=== PATIENT | male | born 1935 | race Caucasian/White ===

== ENCOUNTER 2017-06-17 22:49 | Emergency (ER) | payer MEDICARE ==
[~2017-06-17] VITALS: Ht 185.4 cm; Wt 91.2 kg
[~2017-06-17 22:49] MED LIST: ALLP300T PO; BISO1TAB39 PO; CIPR500S2 PO; CPR500T PO; METO50TA7; METR500T PO; OXYC-12 PO; PRM25T PO; TRZS2T PO
--- OUTSIDE RECORDS SUMMARY | 2017-06-17 22:54 | XMS REPORT | Continuity of Care Document ---
Author Author [facility] Organization [facility] Address Unknown Phone Unavailable Care Team Providers Care Transit Police Officer Name Role Phone [employer] Unavailable Unavailable Problems Medications Allergies, Adverse Reactions, Alerts Immunizations Results Vital Signs Encounters Location Location Details Encounter Type Encounter Number Reason For Visit Attending Provider ADM Date DC Date Status Source OUTPATIENT [id number] JARON GARAY 12/16/2016 12/16/2016 Active [facility] O 02/26/2017 Active [facility] RAD/ONC [id number] 02/26/2017 Active [facility] Procedures Plan of Care Social History Assessment and Plan Family History Value Date Source Advance Directives Order Name Results Value Date Source
--- OUTSIDE RECORDS SUMMARY | 2017-06-17 22:54 | XMS REPORT | Encounter Summary ---
Author Author [facility] Organization [facility] Address Unknown Phone Unavailable Care Team Providers Care Outside Barrel Lathe Operator Name Role Phone PCP Unavailable Reason for Visit * Reason Comments Heme/Onc Care lupron Encounter Details Date Type Department Care Team Description 06/11/2017 Hospital [facility] Rita Gamble MD Arrived Encounter Cancer Center - [address] [facility] [place] [address] [facility] [place] [address] [facility] [address] [place], [place] [phone] Social History Tobacco Use Types Packs/Day Years Used Date Never Smoker Smokeless Tobacco: Never Used Sex Assigned at Date Recorded Not on file as of this encounter Last Filed Vital Signs Vital Sign Reading Time Taken Blood Pressure 146/90 06/11/2017 10:59 AM SHADOWGRAPH SCALE OPERATOR Pulse 59 06/11/2017 10:59 AM SHADOWGRAPH SCALE OPERATOR Temperature 36.4 C (97.5 F) 06/11/2017 10:59 AM SHADOWGRAPH SCALE OPERATOR Respiratory Rate - - Oxygen Saturation 98% 06/11/2017 10:59 AM SHADOWGRAPH SCALE OPERATOR Inhaled Oxygen - - Concentration Weight - - Height - - Body Mass Index - - in this encounter Medications at Time of Discharge Medication Sig. Disp. Refills Start Date End Date ciprofloxacin (CIPRO) 500 Take 1 Tab by mouth twice 14 Tab 0 2016 mg tablet daily. Begin taking on morning of procedure day. dicyclomine (BENTYL) 10 Take 1 capsule by mouth 360 capsule 3 2016 mg capsule four times daily. lidocaine/prilocaine Apply topically to 30 g 0 12/07/2016 (EMLA) 2.5/2.5 % topical affected area as cream directed. Apply to perineum 1 hours prior to procedure. ondansetron (ZOFRAN) 8 mg Take 0.5 Tabs by mouth 30 Tab 0 01/06/2017 tabletIndications: Nausea every 8 hours as needed for Nausea or Vomiting. oxybutynin XL (DITROPAN Take 1 Tab by mouth 90 Tab 3 01/21/2017 XL) 5 mg tablet daily. tamsulosin (FLOMAX) 0.4 Take 1 Cap by mouth 90 Cap 3 01/04/2017 mg capsuleIndications: daily. Do not crush, chew Prostate cancer (HCC) or open capsules. Take 30 minutes following the same meal each day. as of this encounter Miscellaneous Notes * Addendum Note - Madelaine Dejesus - 06/11/2017 1:33 PM SHADOWGRAPH SCALE OPERATOR Encounter addended by: Madelaine Dejesus on: 06/17/2017 9:08 AM
Actions taken : Charge Capture section accepted in this encounter Plan of Treatment Not on fileas of this encounter Visit Diagnoses Diagnosis Prostate cancer (HCC) Malignant neoplasm of prostate in this encounter Administered Medications Medication Order MAR Action Action Date Dose Rate Site leuprolide(+) 3 month (LUPRON DEPOT) Given 06/11/2017 22.5 mg Gluteal , injection 22.5 mg 10:56 SHADOWGRAPH SCALE OPERATOR Left 22.5 mg, Intramuscular, ONCE, 1 dose, Wed06/11/17 at 1100, NURSING: For IM administration only. NOTE: This is a HIGH ALERT Medication. in this encounter
--- OUTSIDE RECORDS SUMMARY | 2017-06-17 22:54 | XMS REPORT | Encounter Summary ---
Author Author [facility] Organization [facility] Address Unknown Phone Unavailable Care Team Providers Care Coil Winder Strap Name Role Phone PCP Unavailable Reason for Referral * Consult, Test & Treat Status Reason Specialty Diagnoses / Referred By Referred To Procedures Contact Contact Med Assist Specialty Radiation Therapy Diagnoses Rita Gamble Cc Radiation Review Services Prostate cancer MD Therapy Required (HCC) [address] [place], [place] rocedures [place] [address] [id number] - [place], [place] Phone: [place] [address] [place] Phone: [place] [phone] Encounter Details Date Type Department Care Team Description 06/10/2017 Orders Only Cancer Center - Radiation Pro, SPENCER Roldan Prostate cancer (HCC) Therapy (Primary Dx) [address] [place] [address] Social History Tobacco Use Types Packs/Day Years Used Date Never Smoker Smokeless Tobacco: Never Used Sex Assigned at Date Recorded Not on file as of this encounter Plan of Treatment Name Priority Associated Diagnoses Order Schedule AMB REFERRAL FOR RADIATION ONCOLOGY Routine Prostate cancer (HCC) Ordered: 06/10/2017 MEDICATIONS as of this encounter Visit Diagnoses Diagnosis Prostate cancer (HCC) - Primary Malignant neoplasm of prostate in this encounter
--- OUTSIDE RECORDS SUMMARY | 2017-06-17 22:54 | XMS REPORT | Encounter Summary ---
Author Author [facility] Organization [facility] Address Unknown Phone Unavailable Care Team Providers Care Offset Machine Operator Name Role Phone PCP Unavailable Reason for Referral * Consult, Test & Treat Status Reason Specialty Diagnoses / Referred By Referred To Procedures Contact Contact Med Assist Specialty Oncology / Diagnoses Rita Gamble Shen, Xinglei, MD Review Services Radiation Therapy Prostate cancer MD [address] Required (HCC) [address] [place] [address] [place], [place] [address] [id number] [address] [place], [place] Phone: [phone] Phone: Reason for Visit * Reason Comments Rad Therapy Follow-up Encounter Details Date Type Department Care Team Description 06/11/2017 Office Visit Cancer Center - Radiation Rita Gamble MD Prostate cancer (HCC) Therapy [address] [place] [address] [place] [address] [place], [place] [id number] Social History Tobacco Use Types Packs/Day Years Used Date Never Smoker Smokeless Tobacco: Never Used Sex Assigned at Date Recorded Not on file as of this encounter Last Filed Vital Signs Vital Sign Reading Time Taken Blood Pressure 141/73 06/11/2017 1:25 PM CERTIFIED PEDORTHOTIST Pulse 60 06/11/2017 1:25 PM CERTIFIED PEDORTHOTIST Temperature 36.8 C (98.3 F) 06/11/2017 1:25 PM CERTIFIED PEDORTHOTIST Respiratory Rate - - Oxygen Saturation 98% 06/11/2017 1:25 PM CERTIFIED PEDORTHOTIST Inhaled Oxygen - - Concentration Weight 91.4 kg (201 lb 6.4 oz) 06/11/2017 1:25 PM CERTIFIED PEDORTHOTIST Height 182.9 cm (6' 0.01") 06/11/2017 1:25 PM CERTIFIED PEDORTHOTIST Body Mass Index 27.31 06/11/2017 1:25 PM CERTIFIED PEDORTHOTIST in this encounter Progress Notes * Rita Gamble MD - 06/11/2017 1:30 PM CERTIFIED PEDORTHOTIST Formatting of this note may be different from the original. Date: 06/11/2017 Derrick Milligan is a 82 y.o. male. : 1935 Diagnosis: Patient Active Problem List Diagnosis Date Noted History of radiation therapy 02/08/2017 Site Treatment Dates Technique Energy Dose/ Fraction (cGy) Total Dose (cGy) Fractions Missed Treatment Days Pelvis SIB Prostate SIB Prostate boost Total 12/24/16 - 01/29/17 12/24/16 - 01/29/17 02/01/17 - 02/03/17 12/24/16 - 02/03/17 IMRT-SIB IMRT-SIB IMRT IMRT 10X 10X 10X 10X 180 250 250 -- 4500 6250 750 7000 25 25 3 28 2 2 0 2 Concurrent systemic therapy: continuous churn buttermaker ADT Prostate cancer (HCC) 07/29/2016 PSA=39 ng/mL. CT A/P (05/28/2016): No evidence of lymphadenopathy. [address] [place], [place]. Bone Scan (05/28/2016): (+)arthritic pattern. No evidence of bone mets. [address] [place], [place]. MRI Prostate (07/14/2016): Right anterolateral mid gland to base transition zone lesion with marked restricted diffusion. PI-RADS 4 - High (clinically significant cancer is likely to be present). MRI-US Fusion PNBx (07/29/2016): cT1c; ODALIS [place] 4+5=9, 4/5 cores, 40-100%; Dr. Resendiz. Prostate cancer (HCC) Staging form: Prostate, AJCC 7th Edition - Clinical: Stage IIB (T1c, N0, M0, PSA: 20 or greater, [place] 8-10) - Unsigned Subjective: Mr. Milligan returns for follow-up. He remains on ADT and is tolerating this well. He continues to have significant urinary obstructive symptoms, and is taking Flomax. Another issue is that he is having severe bowel urgency on occasion. He had been taking some probiotics but stopped because it seemed that this was making his diarrhea worse. His bowels are somewhat improved from last visit, but still a problem. Review of Systems Constitutional: Positive for fatigue. Eyes: Negative. Cardiovascular: Negative. Gastrointestinal: Positive for abdominal pain and diarrhea. Endocrine: Negative. Genitourinary: Positive for frequency. Musculoskeletal: Positive for back pain. Skin: Negative. Allergic/Immunologic: Negative. Neurological: Negative. Hematological: Negative. Psychiatric/Behavioral: Negative. Objective: ciprofloxacin (CIPRO) 500 mg tablet Take 1 Tab by mouth twice daily. Begin taking on morning of procedure day. dicyclomine (BENTYL) 10 mg capsule Take 1 capsule by mouth four times daily. lidocaine/prilocaine (EMLA) 2.5/2.5 % topical cream Apply topically to affected area as directed. Apply to perineum 1 hours prior to procedure. ondansetron (ZOFRAN) 8 mg tablet Take 0.5 Tabs by mouth every 8 hours as needed for Nausea or Vomiting. oxybutynin XL (DITROPAN XL) 5 mg tablet Take 1 Tab by mouth daily. tamsulosin (FLOMAX) 0.4 mg capsule Take 1 Cap by mouth daily. Do not crush, chew or open capsules. Take 30 minutes following the same meal each day. Vitals: 06/11/17 1325 BP: 141/73 Pulse: 60 Temp: 36.8 C (98.3 F) TempSrc: Oral SpO2: 98% Weight: 91.4 kg (201 lb 6.4 oz) Height: 182.9 cm (72.01") Body mass index is 27.31 kg/(m^2). Pain Score: Six Pain Loc: Abdomen (back) KARNOFSKY PERFORMANCE SCORE: 90% Able to carry on normal activity; minor signs of disease BP 141/73 (BP Source: Arm, Left, Patient Position: Sitting) | Pulse 60 | Temp 36.8 C (98.3 F) (Oral) | Ht 182.9 cm (72.01") | Wt 91.4 kg (201 lb 6.4 oz) | SpO2 98% | BMI 27.31 kg/m2 General appearance: alert, well-developed and well-nourished Abdomen: soft, non-tender. Bowel sounds normal. No masses, no organomegaly Prostatic Specific Antigen Date Value Ref Range Status 06/11/2017 0.01 <4.0 NG/ML Final 03/11/2017 0.02 <4.0 NG/ML Final 12/09/2016 0.79 <4.0 NG/ML Final 09/30/2016 1.30 <4.0 NG/ML Final Assessment and Plan: Derrick Milligan is a 82 y.o. male with diagnosis of high risk prostate caner, [id number] PSA 40, treated with definitive radiation therapy to 70 Gy in 28 fractions completed 02/03/2017 with plan for shelter ADT. He started ADT 08/2016, so target completion mid-2018. PSA at current victoria of 0.01. He continues to have persistent bowel changes, grade 1-2. I recommend to try restarting probiotics. I will have him continue Flomax as well. I will have Mr. Milligan follow up with me in 3 months with PSA check. Rita Gamble MD Attending Physician Department of Radiation Oncology, [facility] I personally performed the E/M including history, physical exam, and MDM. Staff name: Rita Gamble MD Date: 06/12/2017 Note documented by: Yuli Pro RN 06/11/2017 * Rita Gamble MD - 06/11/2017 1:30 PM CERTIFIED PEDORTHOTIST Started ADT 08/2016 in this encounter Plan of Treatment Name Priority Associated Diagnoses Order Schedule AMB REFERRAL FOR RADIATION ONCOLOGY Routine Prostate cancer (HCC) Ordered: 06/11/2017 MEDICATIONS as of this encounter Visit Diagnoses Diagnosis Prostate cancer (HCC) Malignant neoplasm of prostate in this encounter
--- OUTSIDE RECORDS SUMMARY | 2017-06-17 22:54 | XMS REPORT | Clinical Summary ---
Author Author [facility] Organization [facility] Address Unknown Phone Unavailable Care Team Providers Care Cardiovascular Disease Specialist Name Role Phone PCP Unavailable Source Comments Some departments are not documenting in the electronic medical record. If you do not see the information that you expected, contact Release of Information in the Health Information Management department at [phone] for further assistance in locating additional records.[facility] Allergies No Known Allergies Current Medications Prescription Sig. Disp. Refills Start End Date Status Date lidocaine/prilocaine Apply topically to 30 g 0 12/08/19 Active (EMLA) 2.5/2.5 % topical affected area as 17 cream directed. Apply to perineum 1 hours prior to procedure. ciprofloxacin (CIPRO) 500 Take 1 Tab by mouth twice 14 Tab 0 12/08/19 Active mg tablet daily. Begin taking on 17 morning of procedure day. tamsulosin (FLOMAX) 0.4 Take 1 Cap by mouth 90 Cap 3 01/05/20 Active mg capsuleIndications: daily. Do not crush, chew 17 Prostate cancer (HCC) or open capsules. Take 30 minutes following the same meal each day. ondansetron (ZOFRAN) 8 mg Take 0.5 Tabs by mouth 30 Tab 0 01/07/20 Active tabletIndications: Nausea every 8 hours as needed 17 for Nausea or Vomiting. oxybutynin XL (DITROPAN Take 1 Tab by mouth 90 Tab 3 01/22/20 Active XL) 5 mg tablet daily. 17 dicyclomine (BENTYL) 10 Take 1 capsule by mouth 360 capsule 3 Active mg capsule four times daily. 17 bicalutamide (CASODEX) 50 Take 1 Tab by mouth 5 Tab 0 08/17/20 06/11 Discontin mg tablet daily. Take 1 tab orally 17 17 ued for 5 days prior to initiation of lupron injection. Active Problems Problem Noted Date History of radiation therapy 02/08/2017 Overview: Formatting of this note may be different from the original. Site Treatment Dates Technique Energy Dose/ Fraction (cGy) Total Dose (cGy) Fractions Missed Treatment Days Pelvis SIB Prostate SIB Prostate boost Total 12/24/16 - 01/29/17 12/24/16 - 01/29/17 02/01/17 - 02/03/17 12/24/16 - 02/03/17 IMRT-SIB IMRT-SIB IMRT IMRT 10X 10X 10X 10X 180 250 250 -- 4500 6250 750 7000 25 25 3 28 2 2 0 2 Concurrent systemic therapy: half-way ADT Prostate cancer (HCC) 07/29/2016 Overview: PSA=39 ng/mL. CT A/P (05/28/2016): No evidence of lymphadenopathy. [address] [place], [place]. Bone Scan (05/28/2016): (+)arthritic pattern. No evidence of bone mets. [address] [place], [place]. MRI Prostate (07/14/2016): Right anterolateral mid gland to base transition zone lesion with marked restricted diffusion. PI-RADS 4 - High (clinically significant cancer is likely to be present). MRI-US Fusion PNBx (07/29/2016): cT1c; ODALIS [place] 4+5=9, 4/5 cores, 40-100%; Dr. Resendiz. Encounters Date Type Specialty Care Team Description 06/11/2017 Hospital Lab Rtia Gamble MD Malignant neoplasm of Encounter prostate (HCC) 06/11/2017 Office Visit Radiation Therapy Rita Gamble MD Prostate cancer (HCC) 06/11/2017 Hospital Oncology Rita Gamble MD Arrived Encounter 06/10/2017 Orders Only Radiation Therapy Yuli Pro RN Prostate cancer (HCC) (Primary Dx) 06/04/2017 Telephone Radiation Therapy Yuli Pro RN Appointment from Last 3 Months Social History Tobacco Use Types Packs/Day Years Used Date Never Smoker Smokeless Tobacco: Never Used Sex Assigned at Date Recorded Not on file Last Filed Vital Signs Vital Sign Reading Time Taken Blood Pressure 141/73 06/11/2017 1:25 PM LABEL FUSER TENDER Pulse 60 06/11/2017 1:25 PM LABEL FUSER TENDER Temperature 36.8 C (98.3 F) 06/11/2017 1:25 PM LABEL FUSER TENDER Respiratory Rate - - Oxygen Saturation 98% 06/11/2017 1:25 PM LABEL FUSER TENDER Inhaled Oxygen - - Concentration Weight 91.4 kg (201 lb 6.4 oz) 06/11/2017 1:25 PM LABEL FUSER TENDER Height 182.9 cm (6' 0.01") 06/11/2017 1:25 PM LABEL FUSER TENDER Body Mass Index 27.31 06/11/2017 1:25 PM LABEL FUSER TENDER Plan of Treatment Health Maintenance Due Date Last Done Comments PHYSICAL (COMPREHENSIVE) 1942 EXAM PERTUSSIS VACCINE 1946 TETANUS VACCINE 1952 SHINGLES VACCINE 1995 PREVNAR/PNEUMOVAX (#1) 2000 INFLUENZA VACCINE 01/26/2017 Results * PROSTATIC SPECIFIC ANTIGEN-PSA (06/11/2017 1:34 PM) Component Value Ref Range Prostatic Specific 0.01 <4.0 NG/ML Antigen Specimen Performing Laboratory Blood [facility] [address] [place] [address] from Last 3 Months
--- OUTSIDE RECORDS SUMMARY | 2017-06-17 22:54 | XMS REPORT | Encounter Summary ---
Author Author [facility] Organization [facility] Address Unknown Phone Unavailable Care Team Providers Care Barrel Tester Name Role Phone PCP Unavailable Encounter Details Date Type Department Care Team Description 06/11/2017 Hospital Clinlab Rita Gamble MD Malignant neoplasm of Encounter [address] prostate (HCC) [place] [address] [address] [place] [address] [phone] Social History Tobacco Use Types Packs/Day Years Used Date Never Smoker Smokeless Tobacco: Never Used Sex Assigned at Date Recorded Not on file as of this encounter Medications at Time of Discharge [...] meal each day. as of this encounter Plan of Treatment Not on fileas of this encounter Results * PROSTATIC SPECIFIC ANTIGEN-PSA (06/11/2017 1:34 PM) Component Value Ref Range Prostatic Specific 0.01 <4.0 NG/ML Antigen Specimen Performing Laboratory Blood [facility] [address] [place] [address] in this encounter Visit Diagnoses Diagnosis Prostate cancer (HCC) Malignant neoplasm of prostate in this encounter Admitting Diagnoses Diagnosis Malignant neoplasm of prostate (HCC) Malignant neoplasm of prostate in this encounter
--- OUTSIDE RECORDS SUMMARY | 2017-06-17 22:55 | XMS REPORT | Encounter Summary ---
Author Author [facility] Organization [facility] Address Unknown Phone Unavailable Care Team Providers Care Lmft Name Role Phone PCP Unavailable Reason for Visit * Reason Comments Appointment Encounter Details Date Type Department Care Team Description 06/04/2017 Telephone [facility] Center - Radiation Yuil Pro RN Appointment Therapy [address] [place] [address] Social History Tobacco Use Types Packs/Day Years Used Date Never Smoker Smokeless Tobacco: Never Used Sex Assigned at Date Recorded Not on file as of this encounter Miscellaneous Notes * Telephone Encounter - Yuli Pro RN - 06/04/2017 3:33 PM STABBER Left message for Mr. Milligan regarding rescheduling his lupron injection and follow-up with Dr. Gamble. Left call back number if he is to have any questions. in this encounter Plan of Treatment Not on fileas of this encounter Visit Diagnoses Not on filein this encounter
--- OUTSIDE RECORDS SUMMARY | 2017-06-17 22:55 | XMS REPORT | Continuity of Care Document ---
Author Author [facility] Organization [facility] Address Unknown Phone Unavailable Allergies Active Description Code Type Severity Reaction Onset Reported/Identified Relationship to Patient Clinical Status Yes No Known Drug Allergies [id number] Drug Allergy Mild N/A 01/10/2009 Medications There is no data. Problems Date Dx Coded Attending Type Code Diagnosis Diagnosed By 01/25/2015 MITUL WAITE ILLUSIONIST Ot 424.0 01/25/2015 MITUL WAITE ILLUSIONIST Ot 786.50 01/25/2015 MITUL WAITE ILLUSIONIST Ot 789.00 01/25/2015 MITUL WAITE ILLUSIONIST Ot 424.0 01/25/2015 MITUL WAITE ILLUSIONIST Ot 786.50 01/25/2015 MITUL WAITE ILLUSIONIST Ot 789.00 02/13/2015 MITUL WAITE ILLUSIONIST Ot 424.0 02/13/2015 MITUL WAITE ILLUSIONIST Ot 786.50 02/13/2015 MITUL WAITE ILLUSIONIST Ot 789.00 02/22/2015 MITUL WAITE ILLUSIONIST Ot 424.0 02/22/2015 MITUL WAITE ILLUSIONIST Ot 786.50 02/22/2015 MITUL WAITE ILLUSIONIST Ot 789.00 07/08/2015 CHARLIE MORAN MD Ot I10 07/08/2015 CHARLIE MORAN MD Ot R04.0 07/08/2015 CHARLIE MORAN MD Ot Z79.899 04/15/2016 CHARLIE GOLDSTEIN DC, Ot M25.551 PAIN IN RIGHT HIP 04/15/2016 CHARLIE GOLDSTEIN DC Ot M54.5 LOW BACK PAIN 2016 CHARLIE GOLDSTEIN DC Ot M25.551 PAIN IN RIGHT HIP 2016 CHARLIE GOLDSTEIN DC, Ot M54.5 LOW BACK PAIN 05/15/2016 CHARLIE GOLDSTEIN DC Ot M25.551 PAIN IN RIGHT HIP 05/15/2016 CHARLIE GOLDSTEIN DC Ot M54.5 LOW BACK PAIN 05/29/2016 CHERYL SIMON MD Ot N40.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 Results There is no data. Encounters ACCT No. Visit Date/Time Discharge Status Pt. Type Provider Facility Loc./Unit Complaint [id number] 05/28/2016 10:30:00 05/28/2016 23:59:59 CLS Outpatient CHERYL SIMON MD [facility] CARD ELEVATED PSA [id number] 04/15/2016 10:05:00 04/15/2016 23:59:59 CLS Outpatient CHARLIE GOLDSTEIN DC [facility] RAD LOW BACK/PELIVC RT HIP PAIN [id number] 07/08/2015 10:06:00 07/08/2015 12:13:00 DIS Emergency CHARLIE MORAN MD [facility] ER [id number] 01/21/2015 09:30:00 01/21/2015 23:59:59 CLS Outpatient MITUL WAITE [facility] CARD [id number] 10/25/2013 17:59:00 10/25/2013 21:17:00 DIS Emergency [id number] 12/30/2012 07:02:00 12/30/2012 15:30:00 DIS Outpatient [id number] 12/28/2012 13:58:00 12/29/2012 13:55:00 DIS Inpatient [id number] 12/28/2012 09:54:00 12/28/2012 23:59:59 CLS Outpatient
[2017-06-17] MEDS: NS IV PRN (23:14)
[2017-06-17 23:19] LABS: BASOPHILS % (AUTO) 0 % (0-10); EOSINOPHILS # (AUTO) 0.1 10^3/uL (0.0-0.3); EOSINOPHILS % (AUTO) 1 % (0-10); LYMPHOCYTES # (AUTO) 0.7 X 10^3 (1.0-4.0); LYMPHOCYTES % (AUTO) 11 % (12-44); MEAN CORPUSCULAR HEMOGLOBIN 31 PG (25-34); MEAN CORPUSCULAR HGB CONC 34 G/DL (32-36); MEAN CORPUSCULAR VOLUME 91 FL (80-99); MEAN PLATELET VOLUME 8.8 FL (7.4-10.4); MONOCYTES # (AUTO) 1.1 X 10^3 (0.0-1.0); MONOCYTES % (AUTO) 17 % (0-12); NEUTROPHILS # (AUTO) 4.5 X 10^3 (1.8-7.8); NEUTROPHILS % (AUTO) 71 % (42-75); PLATELET COUNT 136 10^3/uL (130-400); RED BLOOD COUNT 2.78 10^6/uL (4.35-5.85); WHITE BLOOD COUNT 6.4 10^3/uL (4.3-11.0)
[2017-06-17 23:28] LABS: INR 1.1 (0.8-1.4); PROTHROMBIN TIME PATIENT 13.9 SEC (12.2-14.7)
[2017-06-17] MEDS ORDERED: CLOP75TA28 PO (23:30)
[2017-06-17] MEDS ORDERED: DICY10CA12 PO (23:30)
[2017-06-17] MEDS ORDERED: ASPI-999 PO (23:30)
[2017-06-17] MEDS ORDERED: CLON0.1T PO (23:30)
[2017-06-17] MEDS ORDERED: MULT-35 PO (23:30)
[2017-06-17] MEDS ORDERED: BISO1TAB6 PO (23:30)
[2017-06-17] MEDS: NS IV 1000 ML 1,000 ML IV ONE (23:30)
[2017-06-17] MEDS ORDERED: LOSA100T28 PO (23:30)
[2017-06-17] MEDS ORDERED: ALLO300T2 PO (23:30)
[2017-06-17] MEDS ORDERED: TAMS0.4C2 PO (23:30)
[2017-06-17 23:33] LABS: BILIRUBIN,URINE NEGATIVE (NEGATIVE); KETONES,URINE NEGATIVE (NEGATIVE); LEUKOCYTE ESTERASE ,URINE 2+ (NEGATIVE); NITRITE,URINE NEGATIVE (NEGATIVE); PH,URINE 6 (5-9); PROTEIN,URINE 2+ (NEGATIVE); UROBILINOGEN,URINE NORMAL (NORMAL)
[2017-06-17 23:35] LABS: ALANINE AMINOTRANSFERASE 38 U/L (0-55); ALBUMIN 3.4 GM/DL (3.2-4.5); ANION GAP 11 MMOL/L (5-14); ASPARTATE AMINO TRANSFERASE 54 U/L (5-34); BILIRUBIN,TOTAL 0.9 MG/DL (0.1-1.0); BLOOD UREA NITROGEN 17 MG/DL (7-18); BUN/CREATININE RATIO 15; CALCIUM 8.6 MG/DL (8.5-10.1); CARBON DIOXIDE 26 MMOL/L (21-32); CHLORIDE 98 MMOL/L (98-107); CREATININE SERUM 1.14 MG/DL (0.60-1.30); GFR ESTIMATED > 60; GLUCOSE 108 MG/DL (70-105); POTASSIUM 3.3 MMOL/L (3.6-5.0); SODIUM 135 MMOL/L (135-145); TOTAL PROTEIN 6.1 GM/DL (6.4-8.2)
[2017-06-17 23:42] LABS: SQUAMOUS EPITHELIAL CELL,UR RARE /HPF
--- NOTE | 2017-06-18 00:16 | ED General ---
General Chief Complaint: Fever-Adult/Adol Stated Complaint: FEVER,CHILLS,POST ABD SURG 06/14 Nursing Triage Note: Pt had tripe A repair on 06-14, today began havign SOB, R flank pain, fever, and body aches. 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 He denies any cough or dysuria. He reports having blood in his urine ever since removal of the catheter. He is on aspirin and Plavix since surgery. He has had difficulty producing bowel movements since the surgery. He has not had a bowel movement in the last 24 hours. He has not been eating much. Allergies and Home Medications Allergies Coded Allergies: No Known Drug Allergies (Unverified , 01/10/09) Home Medications Allopurinol 300 Mg Tab, 300 MG PO DAILY, (Reported) Allopurinol 300 Mg Tablet, 300 MG PO DAILY, (Reported) Aspirin 81 Mg Tab.chew, 81 MG PO DAILY, (Reported) Bisoprol/Hydrochlorothiazide 1 Tab Tablet, 5-6.25 MG PO DAILY, (Reported) Bisoprolol Fumarate/Hctz 1 Each Tablet, 10 MG PO DAILY, (Reported) Ciprofloxacin 500 Mg/5 Ml [facility], 1 TAB PO BID, #14 Prescribed by: CHARLIE MORAN on 10/25/132058 Clonidine HCl 0.1 Mg Tablet, 0.1 MG PO BID, (Reported) Clopidogrel Bisulfate 75 Mg Tablet, 75 MG PO DAILY, (Reported) Dicyclomine HCl 10 Mg Capsule, 10 MG PO QID, (Reported) Losartan Potassium 100 Mg Tablet, 100 MG PO DAILY, (Reported) Metronidazole 500 Mg Tab, 1 EACH PO BID, #14 Ref 0 Prescribed by: CHARLIE MORAN on 10/25/132058 Multivitamin 1 Each Tablet, 1 EACH PO DAILY, (Reported) Tamsulosin HCl 0.4 Mg Cap.er.24h, 0.4 MG PO DAILY, (Reported) Constitutional: see HPI, fever, weakness EENTM: see HPI Respiratory: see HPI, short of breath Cardiovascular: other (palpitations, feels like heart has been racing) Gastrointestinal: see HPI Genitourinary: see HPI Musculoskeletal: see HPI, back pain Skin: no symptoms reported Psychiatric/Neurological: No Symptoms Reported Hematologic/Lymphatic: No Symptoms Reported Immunological/Allergic: no symptoms reported Past Cwldsdw-Xrekox-Vynrfm Hx Patient Social History Alcohol Use: Occasionally Uses Alcohol Beverage of Choice: Beer Recreational Drug Use: No Smoking Status: Never a Smoker 2nd Hand Smoke Exposure: No Recent Foreign Travel: No Contact w/Someone Who Travel: No Recent Infectious Disease Expo: No Recent Hopitalizations: No Physical Abuse: No Sexual Abuse: No Mistreated: No Fear: No Immunizations Up To Date Tetanus Booster (TDap): Less than 5yrs Seasonal Allergies Seasonal Allergies: No Surgeries History of Surgeries: Yes (hernia surgery/colonoscopy, triple a repair) Surgeries: Abdominal (hernia repairs), Gallbladder, Vascular Surgery ( intravascular repair of AAA) Respiratory History of Respiratory Disorde: No Cardiovascular History of Cardiac Disorders: Yes Cardiac Disorders: Aneurysm, Hypertension Neurological History of Neurological Disord: No Reproductive System Hx Reproductive Disorders: No Gastrointestinal History of Gastrointestinal Di: Yes Gastrointestinal Disorders: Abdominal Hernia Musculoskeletal History of Musculoskeletal Dis: Yes Musculoskeletal Disorders: Gout Endocrine History of Endocrine Disorders: No HEENT History of HEENT Disorders: Yes HEENT Disorders: Cataract Cancer History of Cancer: Yes Cancer: Prostate Psychosocial History of Psychiatric Problem: No Suicide Risk Score: 1 Integumentary History of Skin or Integumenta: No Blood Transfusions History of Blood Disorders: No Adverse Reaction to a Blood Tr: No Physical Exam-Suspected Sepsis Physical Exam Vital Signs Vital Sign - Last 12Hours 06/17/ 22:55 Temp 101.6 Pulse 83 Resp 18 B/P (MAP) 136/81 (99) Pulse Ox 95 O2 Delivery Room Air Capillary Refill : Less Than 3 Seconds Blood Pressure Mean: 99 General Appearance: No Apparent Distress, WD/WN HEENT: PERRL/EOMI, Normal ENT Inspection, Pharynx Normal Neck: Normal Inspection Respiratory: Lungs Clear, Normal Breath Sounds, No Accessory Muscle Use, No Respiratory Distress Cardiovascular: Regular Rate, Rhythm, No Edema, Systolic Murmur Gastrointestinal: Normal Bowel Sounds, Soft, Tenderness (areas of fullness noted in the suprapubic area and in the right upper quadrant. There is also induration over both iliac catheter sites. Ecchymosis extending out from those incisions) Extremity: Normal Inspection, No Pedal Edema Neurologic/Psychiatric: Alert, Oriented x3, No Motor/Sensory Deficits, Normal Mood/Affect, it program manager II-XII Norm as Tested Skin: normal color, warm/dry, ecchymosis Focused Exam Evaluation Lactate Level Laboratory Tests 06/17/17 23:00: Lactic Acid Level 0.92 Lactic Acid Level Progress/Results/Core Measures Suspected Sepsis Recent Fever Within 48 Hours: Yes Infection Criteria Present: Suspected New Infection New/Unexplained Altered Menta: No Sepsis Screen: No Definite Risk Sepsis Diagnosis: SIRS Temperature:101.6 Pulse: 83 Respiratory Rate: 18 Laboratory Tests 06/17/17 23:00: White Blood Count 6.4 Blood Pressure 136 /81 Mean: 99 Laboratory Tests 06/17/17 23:00: Lactic Acid Level 0.92 Laboratory Tests 06/17/17 23:00: Creatinine 1.14, INR Comment 1.1, Platelet Count 136, Total Bilirubin 0.9 Results/Orders Lab Results Laboratory Tests Test 06/17/17 22:03 06/17/17 23:00 Range/Units Urine Color YELLOW Urine Clarity SLIGHTLY CLOUDY Urine pH 6 5-9 Urine Specific [place] 1.010 L 1.016-1.022 Urine Protein 2+ H NEGATIVE Urine Glucose (UA) NEGATIVE NEGATIVE Urine Ketones NEGATIVE NEGATIVE Urine Nitrite NEGATIVE NEGATIVE Urine Bilirubin NEGATIVE NEGATIVE Urine Urobilinogen NORMAL NORMAL MG/DL Urine Leukocyte Esterase 2+ H NEGATIVE Urine RBC (Auto) 4+ H NEGATIVE Urine RBC 2-5 H /HPF Urine WBC 2-5 /HPF Urine Squamous Epithelial Cells RARE /HPF Urine Crystals PRESENT H /LPF Urine Amorphous Sediment FEW KRISTINA URATES H /LPF Urine Bacteria TRACE /HPF Urine Casts NONE /LPF Urine Mucus SMALL H /LPF Urine Culture Indicated NO White Blood Count 6.4 4.3-11.0 10^3/uL Red Blood Count 2.78 L 4.35-5.85 10^6/uL Hemoglobin 8.6 L 13.3-17.7 G/DL Hematocrit 25 L 40-54 % Mean Corpuscular Volume 91 80-99 FL Mean Corpuscular Hemoglobin 31 25-34 PG Mean Corpuscular Hemoglobin Concent 34 32-36 G/DL Red Cell Distribution Width 13.0 10.0-14.5 % Platelet Count 136 130-400 10^3/uL Mean Platelet Volume 8.8 7.4-10.4 FL Neutrophils (%) (Auto) 71 42-75 % Lymphocytes (%) (Auto) 11 L 12-44 % Monocytes (%) (Auto) 17 H 0-12 % Eosinophils (%) (Auto) 1 0-10 % Basophils (%) (Auto) 0 0-10 % Neutrophils # (Auto) 4.5 1.8-7.8 X 10^3 Lymphocytes # (Auto) 0.7 L 1.0-4.0 X 10^3 Monocytes # (Auto) 1.1 H 0.0-1.0 X 10^3 Eosinophils # (Auto) 0.1 0.0-0.3 10^3/uL Basophils # (Auto) 0.0 0.0-0.1 10^3/uL Prothrombin Time 13.9 12.2-14.7 SEC INR Comment 1.1 0.8-1.4 Activated Partial Thromboplast Time 40 H 24-35 SEC Sodium Level 135 135-145 MMOL/L Potassium Level 3.3 L 3.6-5.0 MMOL/L Chloride Level 98 98-107 MMOL/L Carbon Dioxide Level 26 21-32 MMOL/L Anion Gap 11 5-14 MMOL/L Blood Urea Nitrogen 17 7-18 MG/DL Creatinine 1.14 0.60-1.30 MG/DL Estimat Glomerular Filtration Rate > 60 BUN/Creatinine Ratio 15 Glucose Level 108 H 70-105 MG/DL Lactic Acid Level 0.92 0.50-2.00 MMOL/L Calcium Level 8.6 8.5-10.1 MG/DL Total Bilirubin 0.9 0.1-1.0 MG/DL Aspartate Amino Transf (AST/SGOT) 54 H 5-34 U/L Alanine Aminotransferase (ALT/SGPT) 38 0-55 U/L Alkaline Phosphatase 77 40-136 U/L C-Reactive Protein High Sensitivity 12.25 H 0.00-0.50 MG/DL Total Protein 6.1 L 6.4-8.2 GM/DL Albumin 3.4 3.2-4.5 GM/DL Micro Results Microbiology 06/17/17 Influenza Types A,B Antigen (PAUL) - Final, Complete My Orders Orders - MADI SIEGEL MD Cbc With Automated Diff (06/17/17 22:54) Comprehensive Metabolic Panel (06/17/17 22:54) Ua Culture If Indicated (06/17/17 22:54) Saline Lock/Iv-Start (06/17/17 22:54) Lactic Acid Analyzer (06/17/17 23:07) Blood Culture (06/17/17 23:07) Protime With Inr (06/17/17 23:07) Partial Thromboplastin Time (06/17/17 23:07) O2 (06/17/17 23:07) Saline Lock/Iv-Start (06/17/17 23:07) Ns Iv 1000 Ml (Sodium Chloride 0.9%) (06/17/17 23:15) Vital Signs Adult Sepsis Patie Q1H (06/17/17 23:07) Remove Rings In Anticipation O (06/17/17 23:07) Chest Pa/Lat (2 View) (06/17/17 23:07) Influenza A And B Antigens (06/17/17 23:07) Hs C Reactive Protein (06/17/17 23:28) Ct Angio Chst/Abd/Pelv W (06/18/17 00:01) Iohexol Injection (Omnipaque 350 Mg/Ml 1 (06/18/17 00:45) Ns (Ivpb) (Sodium Chloride 0.9% Ivpb Bag (06/18/17 00:45) Ns Iv 1000 Ml (Sodium Chloride 0.9%) (06/18/17 01:04) Ceftriaxone Injection (Rocephin Injectio (06/18/17 02:15) Potassium Chloride (Tablet) (Klor Con Ta (06/18/17 03:00) Vancomycin Injection (Vancomycin Injecti (06/18/17 03:30) Ondansetron Injection (Zofran Injectio (06/18/17 04:30) Promethazine Injection (Phenergan Injec (06/18/17 04:45) Medications Given in ED Current Medications Medications Dose Ordered Sig/Cristy Route Start Time Stop Time Status Last Admin Dose Admin Ceftriaxone Sodium 1000 mg/ Sodium Chloride 50 ml @ 100 mls/hr ONCE ONCE IV 06/18/17 02:15 06/18/17 02:44 DC 06/18/17 02:21 100 MLS/HR Iohexol 150 ml ONCE ONCE IV 06/18/17 00:45 06/18/17 00:46 DC 06/18/17 00:39 125 ML Ondansetron HCl 8 mg ONCE ONCE IVP 06/18/17 04:30 06/18/17 04:31 DC 06/18/17 04:24 8 MG Potassium Chloride 20 meq ONCE ONCE PO 06/18/17 03:00 06/18/17 03:01 DC 06/18/17 03:31 20 MEQ Promethazine HCl 12.5 mg ONCE ONCE IVP 06/18/17 04:45 06/18/17 04:46 DC 06/18/17 04:45 12.5 MG Sodium Chloride 100 ml ONCE ONCE IV 06/18/17 00:45 06/18/17 00:46 DC 06/18/17 00:39 80 ML Sodium Chloride 1,000 ml @ 0 mls/hr Q0M ONCE IV 06/18/17 01:04 06/18/17 01:05 DC 06/17/17 23:30 0 MLS/HR Sodium Chloride 2,803.2 ml @ 1,401.6 mls/hr PRN PRN IV 06/17/17 23:15 06/18/17 01:04 DC 06/17/17 23:14 1,401.6 MLS/HR Vancomycin HCl 1000 mg/Sodium Chloride 250 ml @ 250 mls/hr ONCE ONCE IV 06/18/17 03:30 06/18/17 04:29 DC 06/18/17 03:29 250 MLS/HR Vital Signs/I&O Vital Sign - Last 12Hours 06/17/17 06/17/17 06/18/17 06/18/17 22:55 23:30 00:01 00:30 Temp 101.6 101.0 100.0 100.1 Pulse 83 72 71 78 Resp 18 18 18 18 B/P (MAP) 136/81 (99) 126/75 122/74 155/90 Pulse Ox 95 98 99 99 O2 Delivery Room Air Room Air Room Air Room Air 06/18/17 06/18/17 06/18/17 06/18/17 01:00 01:30 02:00 02:30 Temp 99.9 99.7 Pulse 71 72 73 73 Resp 18 18 18 18 B/P (MAP) 128/79 144/85 137/92 144/85 Pulse Ox 99 99 99 98 O2 Delivery Room Air Room Air Room Air Room Air 06/18/17 06/18/17 06/18/17 06/18/17 03:00 03:30 04:00 04:30 Temp 98.7 Pulse 73 77 80 80 Resp 18 18 18 20 B/P (MAP) 142/85 148/84 128/90 124/81 Pulse Ox 97 99 100 100 O2 Delivery Room Air Room Air Room Air Room Air 06/18/17 04:48 Pulse 83 Resp 18 Pulse Ox 99 O2 Delivery Room Air Capillary Refill : Less Than 3 Seconds Blood Pressure Mean: 99 Progress Note #1: Time: 02:15 Progress Note There was no specific evidence of source of infection on exam or workup. CT angiogram of the chest, abdomen and pelvis was viewed and [facility] report reviewed. No acute abnormalities were appreciated. Attempt was made to contact the vascular surgery team at [facility]. I'm awaiting a call back. In the meantime, Rocephin has been ordered to start empiric antibiotic therapy. Progress Note #2: Time: 02:56 Progress Note I was eventually able to make contact with Dr. Ji, vascular surgeon organizational development manager. He recommends transfer and admission to [facility] with empiric antibiotic therapy. Patient is so close to the time of surgery that fever could be related to surgical complication/infection. Vancomycin was added to the antibiotic therapy at his request. Patient is agreeable to transfer. Patient has receded a liter of IV fluids and was given oral potassium for hypokalemia. Patient is to have no further oral food or fluid until assessed by IV team at [facility]. Progress Note #3: Time: 04:44 Progress Note EMSs in route for transfer. Patient has developed nausea in the meantime. He was treated with Zofran 8 mg but still was nauseated. Phenergan 12.5 mg has been ordered for further treatment of nausea. Diagnostic Imaging Diagonstic Imaging: Xray Plain Films/CT/US/NM/MRI: chest Comments Chest x-ray viewed by me. No acute abnormalities appreciated. Report not yet available. Diagonstic Imaging: CT Plain Films/CT/US/NM/MRI: chest, abdomen, pelvis Comments CT of the chest, abdomen, and pelvis viewed by me. [facility] report reviewed. No acute abnormalities appreciated. Departure Impression Impression: Primary Impression: Postoperative fever Additional Impressions: Abdominal pain Qualified Codes: R10.84 - Generalized abdominal pain Hypokalemia Disposition: 02 XFER SHT-TRM HOSP Condition: Improved Transfer Time Spoke to Accepting Phy: 02:56 Transfer Progress Notes Time to transfer was delayed significantly by inability to make contact with the transfer center. A message was left hand multiple phone calls were placed before contact was made. Transfer Time: 05:00 Transfer Facility: [facility] to the service of Dr. Ji. Method of Transfer: EMS Departure-Patient Inst. Referrals: EMMETT JACKSON MD (PCP/Family) Primary Care Physician MADI SIEGEL MD Jun 18, 2017 00:16
[2017-06-18] MEDS: IOHEXOL 350 MG/ML 150 ML (OMNIPAQUE 350) VIAL IV ONE (00:39)
[2017-06-18] MEDS: NS 100 ML (IVPB) BAG IV ONE (00:39)
[2017-06-18] MEDS: cefTRIAXone INJECTION 1,000 MG in NS (IVPB) 50 ML IV ONE (02:21)
[2017-06-18] MEDS: VANCOMYCIN INJECTION 1,000 MG in NS (IVPB) 250 ML IV ONE (03:29)
[2017-06-18] MEDS: KCL 10 MEQ TAB (MICRO K) PO ONE (03:31)
[2017-06-18] MEDS: ONDANSETRON 4 MG/2 ML (SDV) Z0FRAN IVP ONE (04:24)
[2017-06-18] MEDS: PROMETHAZINE INJ 25 MG/ML (PHENERGAN) AMP IVP ONE (04:45)
[2017-06-18 04:48] VITALS: BP 124/81
--- NOTE | 2017-06-18 06:51 | Diagnostic Imaging Report ---
PROCEDURE: CT angiography of the chest with contrast and CT abdomen and pelvis with contrast. TECHNIQUE: Multiple contiguous axial images were obtained through the chest, abdomen and pelvis after administration of intravenous contrast. Reconstructed MIP CT angiography acquisitions of the aorta were then performed. INDICATION: Increased abdominal pain following abdominal aortic aneurysm repair. The lungs are clear. There are no effusions or pneumothoraces. There is no hilar or mediastinal lymphadenopathy. There is some tortuosity of the thoracic aorta but no aneurysm. There are no pulmonary emboli. Liver appears normal. Gallbladder is surgically absent. Pancreas appears normal. Spleen is not enlarged. Adrenals are normal. There are several parapelvic cysts and some cortical cyst in the kidneys. There is no solid mass, calculus or hydronephrosis. There are postop changes from stent graft repair of the abdominal aorta. There appears to be good apposition of the stent graft and aneurysm neck below the renal arteries. There appears to be good apposition of the distal limb of the graft in the right external iliac artery and in the left common iliac artery. There is residual aneurysm sac around the left internal iliac artery, both common iliac arteries and the distal abdominal artery. Aortic aneurysm sac measures 47 x 47 mm. Stent graft does appear to be patent. Right internal iliac artery has been embolized. Urinary bladder appears normal. There is diverticulosis of the sigmoid colon but no evidence of diverticulitis. Small bowel is not dilated. There are postop changes from right inguinal hernia repair. IMPRESSION: Postop changes from endograft repair of abdominal aortic aneurysm. There is residual aneurysm sac as noted. There is no CT evidence for endoleak. There is no acute abnormality seen. I agree with preliminary interpretation. Dictated by: Dictated on workstation # [id number]
--- NOTE | 2017-06-18 06:54 | Diagnostic Imaging Report ---
INDICATION: Fever, weakness EXAMINATION: Two-view chest 06/17/2017. COMPARISON: 10/25/2013 FINDINGS: The heart is unremarkable. Pulmonary vasculature is normal in appearance. Lungs demonstrate chronic findings with more focal right base atelectasis noted. Atelectasis versus infiltrate developing in the retrocardiac region on lateral view. There is ectasia of the aorta. No pneumothorax. IMPRESSION: 1. Possible developing atelectasis versus infiltrate in the retrocardiac region. The remaining chest demonstrates chronic stable findings. A stent is noted in the mid abdomen. Dictated by: Dictated on workstation # [id number]
== END 2017-06-18 05:00 | disposition short-term general hospital (02) ==
LOC: EDUNIT# 22:49 → ER 22:50
DX: K91.89 Other postprocedural complications and disorders of digestive system (principal); R50.9 Fever, unspecified; R10.84 Generalized abdominal pain; E87.6 Hypokalemia; I10 Essential (primary) hypertension; M10.9 Gout, unspecified; Z87.19 Personal history of other diseases of the digestive system; Z79.82 Long term (current) use of aspirin; Z79.02 Long term (current) use of antithrombotics/antiplatelets; Z98.890 Other specified postprocedural states
CPT/HCPCS: 36415; 71020; 71275; 74174; 80053; 81000; 83605; 85025; 85610; 85730; 86141; 87040; 87804

== ENCOUNTER 2017-07-28 09:00 | Outpatient (RCR) | payer MEDICARE ==
[2017-07-16 10:30] VITALS: BP 135/76
[2017-07-16] MEDS: ACETAMINOPHEN 500 MG TAB (TYLENOL) PO SCH (10:35)
[2017-07-16 11:48] VITALS: BP 135/76
[2017-07-19 09:00] VITALS: BP 182/99
[2017-07-19] MEDS: ACETAMINOPHEN 500 MG TAB (TYLENOL) PO SCH (09:15)
[2017-07-19] MEDS: diphenhydrAMINE 50 MG/ML INJ (BENADRYL) IV PRN (09:38)
[2017-07-21] MEDS: ACETAMINOPHEN 500 MG TAB (TYLENOL) PO SCH (09:30)
[2017-07-21] MEDS: diphenhydrAMINE 50 MG/ML INJ (BENADRYL) IV PRN (09:31)
[2017-07-21] MEDS: IRON SUCROSE 200 MG/10 ML (VENOFER) VIAL IV SCH (09:49)
[2017-07-21 10:28] VITALS: BP 170/86
[2017-07-23] MEDS: ACETAMINOPHEN 500 MG TAB (TYLENOL) PO SCH (13:37)
[2017-07-23] MEDS: diphenhydrAMINE 50 MG/ML INJ (BENADRYL) IV PRN (13:45)
[2017-07-23] MEDS: IRON SUCROSE 200 MG/10 ML (VENOFER) VIAL IV SCH (13:53)
[2017-07-23 14:23] VITALS: BP 145/84
[2017-07-26] MEDS: ACETAMINOPHEN 500 MG TAB (TYLENOL) PO SCH (09:15)
[2017-07-26] MEDS: diphenhydrAMINE 50 MG/ML INJ (BENADRYL) IV PRN (09:18)
[2017-07-26] MEDS: IRON SUCROSE 200 MG/10 ML (VENOFER) VIAL IV SCH (09:20)
[2017-07-26 10:11] VITALS: BP 151/86
[~2017-07-28] VITALS: Ht 185.4 cm; Wt 91.2 kg
[~2017-07-28 09:00] MED LIST changes: +ALLO300T2 PO; +ASPI-999 PO; +BISO1TAB6 PO; +CLON0.1T PO; +CLOP75TA28 PO; +DICY10CA12 PO; +IRON SUCROSE 250 MG/NS 100 ML IVPB IV SCH; +IRON SUCROSE INJECTION 125 MG in NS (IVPB) 100 ML IV SCH; +LOSA100T28 PO; +MULT-35 PO; +TAMS0.4C2 PO; +diphenhydrAMINE 25 MG TAB (BENADRYL) PO SCH; +diphenhydrAMINE 50 MG/ML INJ (BENADRYL) ONE
[2017-07-28] MEDS ORDERED: IRON SUCROSE 200 MG/10 ML (VENOFER) VIAL IV ONE (09:02)
[2017-07-28] MEDS: ACETAMINOPHEN 500 MG TAB (TYLENOL) PO SCH (09:15)
[2017-07-28] MEDS: diphenhydrAMINE 50 MG/ML INJ (BENADRYL) IV PRN (09:16)
[2017-07-28 09:18] VITALS: BP 168/97
[2017-07-28 09:28] VITALS: BP 168/97
== END 2017-10-14 | disposition home or self-care (01) ==
LOC: SDC 09:00
PROVIDERS: ATTEND Family Medicine
DX: D50.9 Iron deficiency anemia, unspecified (principal)
CPT/HCPCS: 96365; 96375

== ENCOUNTER → 2018-07-25 | Outpatient (CLI) | payer MEDICARE ==
[~2018-07-25] MED LIST changes: -IRON SUCROSE 250 MG/NS 100 ML IVPB IV SCH; -IRON SUCROSE INJECTION 125 MG in NS (IVPB) 100 ML IV SCH; -LOSA100T28 PO; +LOSA100T57 PO; -diphenhydrAMINE 25 MG TAB (BENADRYL) PO SCH; -diphenhydrAMINE 50 MG/ML INJ (BENADRYL) ONE
--- NOTE | 2018-07-25 13:26 | Diagnostic Imaging Report ---
INDICATION: Right leg pain. Right leg venous Doppler study was performed in the routine fashion with color flow Doppler and waveform analysis. FINDINGS: The right common femoral vein, superficial femoral vein, popliteal vein and visualized portion of the tibial veins show normal compressibility and venous flow patterns. There is normal augmentation. IMPRESSION: No evidence of deep vein thrombosis of the major veins of the right leg. Dictated by: Dictated on workstation # [id number]
== END ==
LOC: RAD 11:56
PROVIDERS: ATTEND Nurse Practitioner Family
DX: M79.89 Other specified soft tissue disorders (principal)

== ENCOUNTER 2020-01-06 05:49 | Emergency (ER) | payer MEDICARE ==
[~2020-01-06] VITALS: Ht 185 cm; Wt 93.0 kg
[~2020-01-06 05:49] MED LIST changes: +BISO-3 PO; -BISO1TAB6 PO
[2020-01-06] MEDS ORDERED: PHEN95TA (06:00)
[2020-01-06] MEDS ORDERED: KETOROLAC 30 MG/ML VIAL IVP STA (06:03)
[2020-01-06] MEDS ORDERED: fentaNYL INJECTION 100 MCG/2 ML AMP IVP STA ×2 (06:03→08:31)
[2020-01-06] MEDS ORDERED: NS IV 1000 ML 1,000 ML IV SCH (06:03)
--- NOTE | 2020-01-06 06:11 | ED GU-Male ---
General Chief Complaint: - Urinary Stated Complaint: BLOOD IN URINE Source: patient (SOMEWHAT DIFFICULT HISTORIAN), old records History of Present Illness Date Seen by Provider: Jan 06, 2020 Time Seen by Provider: 05:54 Initial Comments PT ARRIVES VIA POV FROM HOME STATES HE HAS HAD "BURNING IN MY PENIS" FOR THE LAST [address] WILDE 5 DAYS AGO AND WAS PUT ON AN UNKNOWN MEDICATION--STATES IT IS NOT HELPING--RX FOR PYRIDIUM ON 12/27/19 WOKE UP AT MIDNIGHT TO GO TO BATHROOM, AND HAD BLOOD IN URINE AND SEVERE LOWER ABDOMINAL CRAMPING STATES NOW BLOOD IS JUST COMING OUT OF PENIS, WITHOUT URINE. STATES HE HAS BEEN PASSING BLOOD CLOTS NO BACK PAIN NO FEVER + NAUSEA, NO VOMITING STATES HE HAS A STRONG URGE THAT FEELS LIKE HE HAS TO HAVE A BM, BUT HAS BEEN UNABLE TO HAVE A BM PT WAS TREATED WITH RADIATION FOR PROSTATE CANCER 3 YEARS AGO AT --NEXT FOLLOW UP APPOINTMENT IS IN MARCH. ADDITIONALLY, PT HAD ABDOMINAL ANEURYSM REPAIR AND A REVISION DUE TO "LEAKING" AT THE SITE PT IS NOT ON ASPIRIN OR ANY BLOOD THINNERS NO HISTORY OF BLOOD IN URINE, OR KIDNEY STONES, OR UTI'S, OR PAIN LIKE THIS PCP: DR. JACKSON Allergies and Home Medications Allergies Coded Allergies: No Known Drug Allergies (Unverified , 01/10/09) Home Medications Allopurinol 300 Mg Tab, 300 MG PO DAILY, (Reported) Aspirin 81 Mg Tab.chew, 81 MG PO DAILY, (Reported) Bisoprol/Hydrochlorothiazide 1 Tab Tablet, 5-6.25 MG PO DAILY, (Reported) Clonidine HCl 0.1 Mg Tablet, 0.1 MG PO BID, (Reported) Losartan Potassium 100 Mg Tablet, 100 MG PO DAILY, (Reported) Patient Home Medication List Home Medication List Reviewed: Yes Review of Systems Review of Systems Constitutional: no symptoms reported; No chills, No diaphoresis, No fever Respiratory: no symptoms reported Cardiovascular: no symptoms reported Gastrointestinal: see HPI, abdominal pain; No constipation, No diarrhea; nausea; No vomiting Genitourinary: see HPI, burning, dysuria, frequency; denies flank pain; hematuria, pain, urgency Musculoskeletal: no symptoms reported; No back pain Skin: no symptoms reported Psychiatric/Neurological: Anxiety Endocrine: No Symptoms Reported Hematologic/Lymphatic: No Symptoms Reported Past Jorhzgc-Rfheby-Ljzjkp Hx Past Med/Social Hx: Reviewed and Corrections made Patient Social History Alcohol Use: Occasionally Uses Number of Drinks Today: AA Alcohol Beverage of Choice: Beer Recreational Drug Use: No Smoking Status: Never a Smoker 2nd Hand Smoke Exposure: No Recent Foreign Travel: No Contact w/Someone Who Travel: No Recent Hopitalizations: No Immunizations Up To Date Tetanus Booster (TDap): Less than 5yrs Seasonal Allergies Seasonal Allergies: No Past Medical History Surgeries: Yes (R INGUINAL HERNIA X 2;DALE 2012;EGD/C-SCOPE ;AAA REPAIR/REVISION ) Abdominal, Gallbladder, Vascular Surgery Respiratory: No Cardiac: Yes (AAA REPAIR/REVISION ) Aneurysm, Hypertension Neurological: No Reproductive Disorders: No Genitourinary: Yes (PROSTATE CANCER-S/P RADIATION TREATMENTS 2016) Benign Prostatic Hyperpl, Prostate Problems Gastrointestinal: Yes (R INGUINAL HERNIA REPAIR X 2; DALE 2012) Abdominal Hernia, Gall Bladder Disease Musculoskeletal: Yes Gout Endocrine: No HEENT: Yes Cataract Cancer: Yes Prostate Did You Recieve Any Treatments: Yes What Type of Treatment Did You: Radiation Psychosocial: No Integumentary: No Blood Disorders: No Adverse Reaction/Blood Tranf: No Physical Exam Vital Signs Vital Signs - First Documented 01/06/20 01/06/20 05:54 09:22 Temp 36.6 Pulse 87 Resp 18 B/P (MAP) 170/114 (132) Pulse Ox 97 O2 Delivery Room Air O2 Flow Rate 2.00 Capillary Refill : Height, Weight, BMI Height: 6'1.00" Weight: 201lbs. 0.0oz. 91.925037zg; 26.5 BMI Method:Stated General Appearance: WD/WN, other (ANXIOUS, APPEARS TO BE IN PAIN) Cardiovascular: regular rate, rhythm, systolic murmur (2/6) Respiratory: normal breath sounds, no respiratory distress, no accessory muscle use Gastrointestinal: normal bowel sounds, soft, tenderness (SUPRAPUBIC ) Back: normal inspection, no CVA tenderness Extremities: normal inspection, normal capillary refill Neurologic/Psychiatric: pool nurse II-XII nml as tested, no motor/sensory deficits, alert, oriented x 3 Skin: normal color, warm/dry Progress/Results/Core Measures Suspected Sepsis SIRS Temperature: Pulse: Respiratory Rate: Laboratory Tests 01/06/20 06:00: White Blood Count 14.3H Blood Pressure / Mean: Laboratory Tests 01/06/20 06:00: Creatinine 1.77H, INR Comment 1.0, Platelet Count 224, Total Bilirubin 0.6 Results/Orders Lab Results Laboratory Tests Test 01/06/20 06:00 01/06/20 06:40 Range/Units White Blood Count 14.3 H 4.3-11.0 10^3/uL Red Blood Count 3.85 L 4.35-5.85 10^6/uL Hemoglobin 11.8 L 13.3-17.7 G/DL Hematocrit 35 L 40-54 % Mean Corpuscular Volume 92 80-99 FL Mean Corpuscular Hemoglobin 31 25-34 PG Mean Corpuscular Hemoglobin Concent 33 32-36 G/DL Red Cell Distribution Width 15.2 H 10.0-14.5 % Platelet Count 224 130-400 10^3/uL Mean Platelet Volume 8.6 7.4-10.4 FL Neutrophils (%) (Auto) 78 H 42-75 % Lymphocytes (%) (Auto) 14 12-44 % Monocytes (%) (Auto) 6 0-12 % Eosinophils (%) (Auto) 2 0-10 % Basophils (%) (Auto) 0 0-10 % Neutrophils # (Auto) 11.2 H 1.8-7.8 X 10^3 Lymphocytes # (Auto) 2.0 1.0-4.0 X 10^3 Monocytes # (Auto) 0.8 0.0-1.0 X 10^3 Eosinophils # (Auto) 0.3 0.0-0.3 10^3/uL Basophils # (Auto) 0.0 0.0-0.1 10^3/uL Prothrombin Time 13.1 12.2-14.7 SEC INR Comment 1.0 0.8-1.4 Activated Partial Thromboplast Time 28 24-35 SEC Sodium Level 141 135-145 MMOL/L Potassium Level 3.4 L 3.6-5.0 MMOL/L Chloride Level 107 98-107 MMOL/L Carbon Dioxide Level 18 L 21-32 MMOL/L Anion Gap 16 H 5-14 MMOL/L Blood Urea Nitrogen 36 H 7-18 MG/DL Creatinine 1.77 H 0.60-1.30 MG/DL Estimat Glomerular Filtration Rate 37 BUN/Creatinine Ratio 20 Glucose Level 171 H 70-105 MG/DL Calcium Level 9.3 8.5-10.1 MG/DL Corrected Calcium 9.1 8.5-10.1 MG/DL Total Bilirubin 0.6 0.1-1.0 MG/DL Aspartate Amino Transf (AST/SGOT) 31 5-34 U/L Alanine Aminotransferase (ALT/SGPT) 19 0-55 U/L Alkaline Phosphatase 83 40-136 U/L Total Protein 7.4 6.4-8.2 GM/DL Albumin 4.2 3.2-4.5 GM/DL Urine Color RED H Urine Clarity CLOUDY Urine pH 7.0 5-9 Urine Specific [place] 1.015 L 1.016-1.022 Urine Protein 3+ H NEGATIVE Urine Glucose (UA) TRACE H NEGATIVE Urine Ketones 1+ H NEGATIVE Urine Nitrite POSITIVE H NEGATIVE Urine Bilirubin 2+ H NEGATIVE Urine Urobilinogen >=8.0 < = 1.0 MG/DL Urine Leukocyte Esterase 2+ H NEGATIVE Urine RBC (Auto) 3+ H NEGATIVE Urine RBC TNTC H /HPF Urine WBC TNTC H /HPF Urine Crystals NONE /LPF Urine Bacteria TRACE /HPF Urine Casts NONE /LPF Urine Mucus NEGATIVE /LPF Urine Culture Indicated YES My Orders Orders - STACIE AVILA DO Ua Culture If Indicated (01/06/20 05:55) Ed Iv/Invasive Line Start (01/06/20 06:03) Bladder Scan (01/06/20 06:03) Monitor-Rhythm Ecg Trace Only (01/06/20 06:03) Ct Abd/Pelvis Wo(Kidney Stone) (01/06/20 06:03) Abdomen/Kub 1view (01/06/20 06:03) Cbc With Automated Diff (01/06/20 06:03) Comprehensive Metabolic Panel (01/06/20 06:03) Protime With Inr (01/06/20 06:03) Partial Thromboplastin Time (01/06/20 06:03) Ed Iv/Invasive Line Start (01/06/20 06:03) Ns Iv 1000 Ml (Sodium Chloride 0.9%) (01/06/20 06:03) Fentanyl Injection (Sublimaze Injection (01/06/20 06:03) Ketorolac Injection (Toradol Injection) (01/06/20 06:03) Catheter(Urinary) Insert & Ass (01/06/20 06:22) Lidocaine 2% (Urojet) (Xylocaine Urojet) (01/06/20 06:30) Lidocaine 2% (Urojet) (Xylocaine Urojet) (01/06/20 06:24) Continuous Bladder Irrigation (01/06/20 06:30) Urine Culture (01/06/20 06:40) Ceftriaxone For Iv Use (Rocephin For I (01/06/20 07:30) Fentanyl Injection (Sublimaze Injection (01/06/20 08:31) Medications Given in ED Current Medications Medications Dose Ordered Sig/Cristy Route Start Time Stop Time Status Last Admin Dose Admin Ceftriaxone Sodium 1000 mg/ Sterile Water 10 ml @ 200 mls/hr ONCE ONCE IV 01/06/20 07:30 01/06/20 07:32 DC 01/06/20 08:07 200 MLS/HR Lidocaine HCl 10 ml ONCE ONCE TOP 01/06/20 06:30 01/06/20 06:31 DC 01/06/20 06:40 10 ML Vital Signs/I&O 01/06/20 01/06/20 05:54 09:22 Temp 36.6 Pulse 87 70 Resp 18 16 B/P (MAP) 170/114 (132) 135/86 Pulse Ox 97 98 O2 Delivery Room Air Nasal Cannula O2 Flow Rate 2.00 Capillary Refill : Progress Note : Progress Note BLADDER SCAN--> 500 ML URINE IN BLADDER UNABLE TO PASS A 3 WAY [place], BUT ABLE TO PASS A 16 G REGULAR [place] WITH RETURN OF GROSSLY BLOOD URINE, WITH MULTIPLE CLOTS NOTED. MANUAL IRRIGATION PERFORMED--RETURN OF URINE/BLOOD/CLOTS, BUT QUICKLY BECOMES OCCLUDED WHEN IRRIGATION IS TEMPORARILY STOPPED. ALSO GIVEN TORADOL AND FENTANYL WITH COMPLETE RELIEF OF DISCOMFORT Diagnostic Imaging Comments ABDOMEN XRAYS--PER RADIOLOGIST REPORT AT 0816 IMPRESSION: 1. Abnormal but nonspecific bowel gas pattern with mildly dilated segments of small bowel in the left lower quadrant. Ileus and obstruction are both in the differential diagnosis. 2. Nonobstructing bilateral renal stones seen on same day CT imaging are not well seen radiographically. 3. Abnormal high attenuation masslike opacification in the urinary bladder seen on same day CT is not visible radiographically. CT ABDOMEN /PELVIS--PER RADIOLOGIST REPORT AT 0750 Impression: 1. Suspect significant blood clot within the bladder. Direct visualization is likely warranted. 2. Nonobstructing bilateral renal calculi. 3. Interval repair of the previous abdominal aortic aneurysm as described. 4. Diverticulosis. Reviewed: Reviewed by Me Departure Communication (Admissions) NO UROLOGY SERVICES AVAILABLE HERE ALL WEEKEND [phone]--CALLED [facility]. [phone]--SPOKE WITH DR. LOBO, UROLOGIST, ADVISES TO ADMIT TO HOSPITALIST AND HE WILL CONSULT. [employer] [facility] [employer] [employer] [facility] [facility] CLINICING HOSPITALIST, DR. VYAS 0806--SPOKE WITH DR. VYAS, ACCEPTS PT FOR ADMIT. THEY WILL CALL BACK WITH BED ASSIGNMENT Impression Primary Impression: Urinary tract infection Additional Impressions: Bladder outflow obstruction HEMATURIA WITH CLOTS History of prostate cancer Renal insufficiency Disposition: XFER SHT-TRM HOSP Condition: Improved Transfer Transfer Reason: Exceeds level of care Transfer Facility: [facility] Method of Transfer: EMS Departure-Patient Inst. Referrals: EMMETT JACKSON MD (PCP/Family) Primary Care Physician STACIE AVILA DO Jan 06, 2020 06:11
[2020-01-06 06:15] LABS: BASOPHILS % (AUTO) 0 % (0-10); EOSINOPHILS # (AUTO) 0.3 10^3/uL (0.0-0.3); EOSINOPHILS % (AUTO) 2 % (0-10); HEMATOCRIT 35 % (40-54); HEMOGLOBIN 11.8 G/DL (13.3-17.7); LYMPHOCYTES % (AUTO) 14 % (12-44); MEAN CORPUSCULAR HEMOGLOBIN 31 PG (25-34); MEAN CORPUSCULAR HGB CONC 33 G/DL (32-36); MEAN CORPUSCULAR VOLUME 92 FL (80-99); MEAN PLATELET VOLUME 8.6 FL (7.4-10.4); MONOCYTES # (AUTO) 0.8 X 10^3 (0.0-1.0); MONOCYTES % (AUTO) 6 % (0-12); NEUTROPHILS # (AUTO) 11.2 X 10^3 (1.8-7.8); NEUTROPHILS % (AUTO) 78 % (42-75); PLATELET COUNT 224 10^3/uL (130-400); RED CELL DISTRIBUTION WIDTH 15.2 % (10.0-14.5); WHITE BLOOD COUNT 14.3 10^3/uL (4.3-11.0)
[2020-01-06 06:21] LABS: ALBUMIN 4.2 GM/DL (3.2-4.5); POTASSIUM 3.4 MMOL/L (3.6-5.0)
[2020-01-06 06:22] LABS: CALCIUM 9.3 MG/DL (8.5-10.1)
[2020-01-06 06:24] LABS: TOTAL PROTEIN 7.4 GM/DL (6.4-8.2)
[2020-01-06] MEDS ORDERED: LIDOCAINE UROJET 2% GEL 10 ML PKG ONE (06:24)
[2020-01-06 06:25] LABS: BILIRUBIN,TOTAL 0.6 MG/DL (0.1-1.0); PROTHROMBIN TIME PATIENT 13.1 SEC (12.2-14.7)
[2020-01-06 06:27] LABS: CREATININE SERUM 1.77 MG/DL (0.60-1.30)
[2020-01-06] MEDS ORDERED: LIDOCAINE UROJET 2% GEL 10 ML PKG TOP ONE (06:30)
--- NOTE | 2020-01-06 06:40 | NUR ---
unable to pass [address] wiggins for cbi,16 fr wiggins placed. pt tolerated well. 400ml bloody urine draining well.
[2020-01-06 06:52] LABS: CLARITY,URINE CLOUDY; COLOR,URINE RED; GLUCOSE, URINE (UA) TRACE (NEGATIVE); KETONES,URINE 1+ (NEGATIVE); LEUKOCYTE ESTERASE ,URINE 2+ (NEGATIVE); NITRITE,URINE POSITIVE (NEGATIVE); PROTEIN,URINE 3+ (NEGATIVE)
[2020-01-06 07:06] LABS: BACTERIA,URINE TRACE /HPF; BILIRUBIN,URINE 2+ (NEGATIVE); RBC,URINE TNTC /HPF; WBC,URINE TNTC /HPF
--- NOTE | 2020-01-06 07:10 | NUR ---
pt's updated on pt's condition/anticipated wait time for results.
--- NOTE | 2020-01-06 07:20 | NUR ---
pt wiggins hand irrigated with 200 ml NACL. 250 ml of bright red urine with blood clots drained from pt bladder while clamping floey and using a 60 cc syringe. Pt wiggins unclamped and draining bright red urine.
[2020-01-06] MEDS ORDERED: cefTRIAXone FOR IV USE 1,000 MG in WATER (STERILE) FOR INJECTION 10 ML IV ONE (07:30)
--- NOTE | 2020-01-06 07:43 | Diagnostic Imaging Report ---
PROCEDURE: CT urinary tract, rule out kidney stone. TECHNIQUE: Multiple contiguous axial images were obtained through the abdomen and pelvis without the use of intravenous contrast. Auto Exposure Controls were utilized during the CT exam to meet ALARA standards for radiation dose reduction. Indication: Gross hematuria and flank pain. Comparison: 05/28/2016. Discussion: Atelectasis noted within the lung bases. Normal heart size. No pleural or pericardial fluid. The gallbladder surgically absent. The liver, pancreas, stomach, spleen, and adrenal glands are unremarkable. Probable renal cysts are stable though poorly evaluated due to lack of contrast. Nonobstructing bilateral renal calculi measuring up to 3 mm on the right. Interval aortic endograft repair. Patency of the stent graft is not evaluated due to lack of contrast. Evaluation of the aneurysm sac itself is limited due to extensive beam hardening artifact from underlying vascular coils. Aneurysm appears grossly stable. Significant diverticulosis with no secondary evidence for diverticulitis. Cruz catheter is present within the bladder. Large dense mass within the bladder could represent a large blood clot though is indeterminate. Small amount of gas within the bladder is likely iatrogenic. No obvious bladder mass identified otherwise. Recommend direct visualization. Prostate is normal in size. Hernia repair noted within the right lower quadrant. No obstruction, pneumatosis, or pneumoperitoneum. No acute osseous abnormality identified. Impression: 1. Suspect significant blood clot within the bladder. Direct visualization is likely warranted. 2. Nonobstructing bilateral renal calculi. 3. Interval repair of the previous abdominal aortic aneurysm as described. 4. Diverticulosis. Dictated by: Dictated on workstation # [id number]
--- NOTE | 2020-01-06 08:01 | Diagnostic Imaging Report ---
EXAMINATION: Abdominal radiograph, single view. 2 images. DATE: 01/06/2020 7:23 AM hours. INDICATION: 84-year-old male, blood in urine. COMPARISON: CT abdomen pelvis January 06, 2020. FINDINGS: There is prominent graft material at the level of the abdominal aorta and bilateral iliac arteries. There is metallic coil material projecting adjacent to the vascular. There are gas-filled segments of small and large bowel. There are mildly dilated segments of small bowel in the left lower quadrant measuring up to 3.1 cm in diameter. There are no additional dilated segments of bowel. There is no identified free intraperitoneal air on limited supine assessment. There is no identified pneumatosis or portal venous gas. There are right upper quadrant surgical clips which may relate to prior cholecystectomy. There are 4 mm nonobstructing right renal stones as well as a 3 mm left renal stone which are seen on same day CT imaging which are not as well visualized radiographically. Abnormal masslike high attenuation in the urinary bladder on same day CT is also not well visualized radiographically. IMPRESSION: 1. Abnormal but nonspecific bowel gas pattern with mildly dilated segments of small bowel in the left lower quadrant. Ileus and obstruction are both in the differential diagnosis. 2. Nonobstructing bilateral renal stones seen on same day CT imaging are not well seen radiographically. 3. Abnormal high attenuation masslike opacification in the urinary bladder seen on same day CT is not visible radiographically. Dictated by: Dictated on workstation # [id number]
--- NOTE | 2020-01-06 08:55 | NUR ---
pt called and updated on pt transfer status and room at this time.
--- NOTE | 2020-01-06 09:20 | NUR ---
1200 ML OF DARK RED BLOODY URINE DRAINED FROM [place] BAG PRIOR TO TRANSPORT.
[2020-01-06 09:22] VITALS: BP 135/86
== END 2020-01-06 09:22 | disposition short-term general hospital (02) ==
LOC: EDUNIT# 05:49 → ER 05:50
DX: N39.0 Urinary tract infection, site not specified (principal); N32.0 Bladder-neck obstruction; N28.9 Disorder of kidney and ureter, unspecified; I10 Essential (primary) hypertension; M10.9 Gout, unspecified; Z85.46 Personal history of malignant neoplasm of prostate; Z79.82 Long term (current) use of aspirin
CPT/HCPCS: 36415; 51702; 74018; 74176; 80053; 81000; 85025; 85610; 85730; 87077; 87088; 87186; 93041

== ENCOUNTER → 2020-01-24 | Outpatient (CLI) | payer MEDICARE ==
[~2020-01-24] MED LIST changes: +PHEN95TA
== END ==
LOC: WOUNDCARE 08:59
PROVIDERS: ATTEND Surgery
DX: N30.41 Irradiation cystitis with hematuria (principal); C61 Malignant neoplasm of prostate; D62 Acute posthemorrhagic anemia; T66.XXXS Radiation sickness, unspecified, sequela
CPT/HCPCS: 99213

== ENCOUNTER → 2020-03-18 | Outpatient (CLI) | payer MEDICARE | LOC: WOUNDCARE 08:06 | PROVIDERS: ATTEND Surgery | DX: N30.41 Irradiation cystitis with hematuria (principal); T66.XXXA Radiation sickness, unspecified, initial encounter; C61 Malignant neoplasm of prostate; D62 Acute posthemorrhagic anemia | CPT/HCPCS: 99212 ==

== ENCOUNTER → 2020-03-20 | Outpatient (CLI) | payer MEDICARE ==
[~2020-03-20] VITALS: Ht 183 cm; Wt 90.0 kg
[~2020-03-20] MED LIST changes: +CATHETER FLUSH 10 ML SYR IV PRN; +REGADENOSON 0.4 MG/5 ML SYR (LEXISCAN) IV ONE
[2020-03-20 13:04] VITALS: BP 205/119
--- NOTE | 2020-03-20 17:30 | Cardiology Stress Test Report ---
Stress Test Report Date of Procedure/Referring: Date of Procedure: Mar 20, 2020 PCP Enoc Davalos MD Admitting Physician Rachel Khan MD Indications: Hypertension, peripheral arterial disease Baseline Heart Rate: 100 Baseline Blood Pressure: Blood Pressure Systolic: 205 Blood Pressure Diastolic: 119 Baseline Vitals Vital Signs Date Time Temp Pulse Resp B/P (MAP) Pulse Ox O2 Delivery O2 Flow Rate FiO2 03/20/20 13:04 100 205/119 (147) 98 Baseline EKG: Baseline EKG: left bundle branch block Summary After explaining the procedure to the patient, he signed a consent and then brought to the stress nuclear laboratory. Patient received 0.4 mg Lexiscan for stress test, ECG, heart rate and blood pressure were monitored continuously. Resting and stress dose of radio tracer were injected, imaging was acquired and reviewed in short axis, horizontal long axis and vertical long axis views. TID: 1.01 SSS: 12 SDS: 5 EF: 51 1. Patient tolerated Lexiscan well 2. Baseline hypertension persisted during test 3. Baseline left bundle branch block persisted during test 4. Decreased uptake involving the whole inferior wall and inferoseptum with m ild reversibility suggestive of mild ischemia 5. Normal left ventricular size, hypokinesia at the inferior wall, EF 51 percent ENOC DAVALOS MD Mar 20, 2020 17:30
== END ==
LOC: CARD 09:41
PROVIDERS: ATTEND Internal Medicine Cardiovascular Disease
DX: I08.3 Combined rheumatic disorders of mitral, aortic and tricuspid valves (principal); I11.9 Hypertensive heart disease without heart failure; D64.9 Anemia, unspecified; I73.9 Peripheral vascular disease, unspecified
CPT/HCPCS: 78452; 93017; 93306; A9502

== ENCOUNTER → 2020-04-04 | Outpatient (CLI) | payer MEDICARE ==
[~2020-04-04] MED LIST changes: -CATHETER FLUSH 10 ML SYR IV PRN; -REGADENOSON 0.4 MG/5 ML SYR (LEXISCAN) IV ONE
== END ==
LOC: WOUNDCARE 08:14
PROVIDERS: ATTEND Surgery
DX: N30.41 Irradiation cystitis with hematuria (principal); T66.XXXS Radiation sickness, unspecified, sequela; C61 Malignant neoplasm of prostate; D62 Acute posthemorrhagic anemia; I10 Essential (primary) hypertension
CPT/HCPCS: 99212

== ENCOUNTER → 2020-04-16 | Outpatient (CLI) | payer MEDICARE | LOC: WOUNDCARE 08:07 | PROVIDERS: ATTEND Surgery | DX: N30.41 Irradiation cystitis with hematuria (principal); T66.XXXS Radiation sickness, unspecified, sequela; C61 Malignant neoplasm of prostate; D62 Acute posthemorrhagic anemia; I10 Essential (primary) hypertension | CPT/HCPCS: 99212 ==

== ENCOUNTER 2020-04-17 08:05 | Outpatient (RCR) | payer MEDICARE ==
[~2020-04-17 08:05] MED LIST changes: +CLN.1T PO; -CLON0.1T PO
== END 2020-04-17 12:00 | disposition home or self-care (01) ==
LOC: WOUNDCARE 08:05
PROVIDERS: ATTEND Surgery
DX: L59.8 Other specified disorders of the skin and subcutaneous tissue related to radiation (principal)
CPT/HCPCS: 99183; 99211; 99212

== ENCOUNTER → 2020-05-02 | Outpatient (CLI) | payer MEDICARE | LOC: LABNPT 08:32 | PROVIDERS: ATTEND Family Medicine | DX: R50.9 Fever, unspecified (principal); R53.83 Other fatigue; Z20.828 Contact with and (suspected) exposure to other viral communicable diseases | CPT/HCPCS: 87635 ==

== ENCOUNTER → 2020-05-08 | Day surgery (SDC) | payer MEDICARE ==
[2020-05-08] VITALS (10 sets, daily range): BP systolic 121–155; BP diastolic 66–103
[~2020-05-08] VITALS: Ht 182 cm; Wt 89.0 kg
[~2020-05-08] MED LIST changes: +AMLO-250 PO; +FINA5TAB6 PO; +HEParin (CATH LAB) 2,000 ML IV ONE; +HEParin 1000 UNIT/ML (10ML VIAL) FOR BOLUS ONE; +L.AC1CAP6 PO; +LIDOCAINE 1% INJ 20 ML 20 ML VIAL ONE; +MIDAZOLAM 5 MG/5 ML (VERSED) VIAL ONE; +MULT-1136 PO; +NS IV 1000 ML 1,000 ML IV SCH; +NS IV 1000 ML 1,000 ML ONE; +PATIENT MAY USE OWN MEDS, ALL PO SCH; +PSYL1PAC10 PO; +TMSL.4C PO; +fentaNYL INJECTION 100 MCG/2 ML AMP ONE; +morphine INJ 10 MG/ML 1ML (SYR OR VIAL) IVP STA; +morphine INJ 10 MG/ML 1ML (SYR OR VIAL) ONE
[2020-05-08 08:02] LABS: HEMOGLOBIN 11.5 g/dL (13.3-17.7); MEAN PLATELET VOLUME 8.7 fL (9.0-12.2); WHITE BLOOD COUNT 4.9 10^3/uL (4.3-11.0)
--- NOTE | 2020-05-08 08:13 | Diagnostic Imaging Report ---
INDICATION: DYSPNEA. Evaluation prior to heart catheterization TECHNIQUE: Single view chest 7:50 AM. CORRELATION STUDY: 06/17/2017 FINDINGS: The heart size, mediastinal configuration and pulmonary vascularity are within normal limits. The lungs are clear with no consolidating infiltrate. There is no significant effusion or pneumothorax. There is noted partial visualization of abdominal aorta and bilateral iliac artery stent graft. Metallic coil projections over the upper abdomen. IMPRESSION: 1. Negative for acute abnormality of the chest. Dictated by: Dictated on workstation # [id number]
[2020-05-08 08:16] LABS: INR 0.9 (0.8-1.4); PROTHROMBIN TIME PATIENT 12.8 SEC (12.2-14.7)
[2020-05-08 08:24] LABS: ALBUMIN 4.3 GM/DL (3.2-4.5); BILIRUBIN,TOTAL 0.5 MG/DL (0.1-1.0); CALCIUM 9.3 MG/DL (8.5-10.1); CREATININE SERUM 1.3 MG/DL (0.60-1.30); POTASSIUM 3.9 MMOL/L (3.6-5.0); TOTAL PROTEIN 7.7 GM/DL (6.4-8.2)
--- NOTE | 2020-05-08 09:24 | NUR ---
SPOKE WITH THE PT (HE HAD HIS HOME MEDS BOTTLES WITH HIM) TO COMPLETE THE MED REC 03-27-2020 ALLOPURINOL 300MG #90/90DS 04-09-2020 CLONIDINE 0.1MG #60/30DS 04-11-2020 AMLODIPINE 5MG #90/90DS 04-15-2020 TAMSULOSIN 0.4MG #60/30DS 04-25-2020 FINASTERIDE 5MG #30/30DS 05-02-2020 LOSARTAN 100MG #90/90DS OTC MEDS: PROBIOTIC METAMUCIL MTV
--- NOTE | 2020-05-08 10:52 | Cardiac Procedure Note-CS/ASA ---
Pre-Procedure Note Pre-Op Procedure Note H&P Reviewed The H&P was reviewed, patient examined and no changes noted. Date H&P Reviewed: May 08, 2020 Time H&P Reviewed: 10:52 Conscious Sedation Pre-Proced Time 10:52 ASA Score 3 For ASA 3 and 4: Consider anesthesia and medical clearance. Also, for patients with a history of failed moderate sedation consider anesthesia. Airway Lungs Heart ASA score ASA 1: a normal healthy patient ASA 2: a patient with a mild systemic disease (mid diabetes, controlled hypertension, obesity x ASA 3: a patient with a severe systemic disease that limits activity (angina, COPD, prior Myocardial infarction) ASA 4: a patient with an incapacitating disease that is a constant threat to life (CHF, renal failure) ASA 5: a moribund patient not expected to survive 24 hrs. (ruptured aneurysm) ASA 6: a declared brain- patient whose organs are being harvested. For emergent operations, add the letter E after the classification Mallampati Classification Grade 3 Sedation Plan Analgesia, Amnesia, Plan communicated to team members, Discussed options with patient/fam, Discussed risks with patient/fam The patient is an appropriate candidate to undergo the planned procedure, sedation, and anesthesia. The patient immediately re-assessed prior to indication. ENOC CRAWFORD MD May 08, 2020 10:52
--- NOTE | 2020-05-08 11:49 | Discharge Inst-Post CATH ---
Discharge Inst-CATH/EP Problems Reviewed?: Yes Post Cardiac Cath/EP D/C Inst Follow Up/Plan Appointment with Dr. Davalos's office in 4 weeks <b>CARDIAC CATH/EP PROCEDURE DISCHARGE INSTRUCTIONS</b> ACTIVITY * Go Home directly and rest. * Limit activity of the leg (or wrist if it was used) for 7 days including aerobics, swimming, jogging, bicycling, etc. * Restrict stair-climbing for 7 days if possible, if not, climb up with your non-cath leg, then bring together on the same step. * Avoid lifting, pushing, pulling or excessive movement of the affected extremity for 7 days. * Customary sexual activity may be resumed after 2 days-use caution not to use a position that strains or causes pain to the affected extremity. * No driving for 24 hours. * NO SMOKING. * Avoid straining for bowel movements for 7 days. * Gentle walking on level ground is allowed. * Returning to work will depend on the type of procedure and the results. Your doctor will discuss this with you. CALL YOUR DOCTOR FOR ANY OF THE FOLLOWING: *If bleeding from the puncture site occurs- Apply gentle pressure to site with clean cloth and call your doctor or EMS. * If a knot or lump forms under the skin, increases in size, or causes pain. * If bruising appears to be worsening or moving further down your leg instead of disappearing. * Temperature above 101 F. CARE OF YOUR GROIN INCISION; * Bruising or purple discoloration of the skin near the puncture site is common. * You may shower only, no bathtub bathing for 5 days. Be careful to avoid slipping as your leg may feel stiff. * If a closure device was used on your femoral artery, please see the attached guide regarding care of the device and your leg. * Leave dressing on FOR 24 hours. CARE OF YOUR WRIST INCISION; * Bruising or purple discoloration of the skin near the puncture site is common. * You may shower. * DO NOT submerge wrist. * Leave dressing on FOR 24 hours. ENOC DAVALOS MD May 08, 2020 11:49 am
--- NOTE | 2020-05-08 11:55 | Cardiac Cath Report ---
Cardiac Cath Report Physician (s)/Hand Printed Circuit Board Assembler (s) Physician ENOC CRAWFORD MD Pre-Procedure Diagnosis Pre-Procedure Diagnosis: coronary artery disease Post-Procedure Note Procedure Start Date: May 08, 2020 Name of Procedure: Left heart catheterization Left ventriculogram Aortic arch angiogram Abdominal aortogram Findings/Procedure Note PROCEDURE NOTE: 85 years old gentleman with history of coronary artery disease, hypertension, abdominal aortic aneurysm. Had complex stenting to the abdominal aorta, had an abnormal stress test as scheduled for cardiac catheterization possible PTCA. After explaining the procedure to the patient, all pros and cons were explained, all questions were answered. The patient signed the consent and then he was placed on the cardiac catheterization laboratory. Groin was prepped SL fashion local anesthesia was used. Sheath placed in the right femoral artery. José Manuel right and left catheter were used to access the coronary system. Pigtail was used to access the left ventricular cavity, long exchange stork wire was used during the procedure due to the presence of multiple abdominal aortic stent and iliac stents. Left ventriculogram was done Aortic arch angiogram was done, abdominal aortic angiogram was done At the end of the procedure the sheath was removed. Closure device was used FINDINGS: Hemodynamics LV 129 / 2, end-diastolic pressure of 2 Aorta 129/70 mean of 86 ANATOMY: Left Main is free of obstructive disease Left Anterior Descending is slightly tortuous with mild disease nonobstructive disease Left Circumflex has mild disease nonobstructive disease Right Coronory Artery is large dominant artery with mild tortuosity nonobstructive disease LV Gram was done showing normal left ventricular size and systolic function es timated ejection fraction 60 percent Aorta done on multiple stages for aortic arch and abdominal aorta Aortic arch angiogram showed prominent aorta with hypertensive changes S shaped thoracic aorta, no dissection, mild aneurysmal dilatation, heavily calcified aorta, normal origin of the brachiocephalic artery, left subclavian and left carotid arteries Abdominal aortogram showed multiple stents in the abdominal aorta infrarenally with an area of moderate stenosis within the middle of the stents, the right il iac has multiple stents that are patent left iliac has mild disease, renal arteries are normal, superior and inferior mesenteric arteries were normal CONCLUSION: 1. Mild coronary artery disease nonobstructive disease large dominant right coronary artery with mild disease 2. Normal left ventricular size and systolic function estimated ejection fraction 60 percent 3. Hypertensive changes in the thoracic aorta with heavily calcified aorta and S-shaped thoracic aorta, no dissection, slightly prominent thoracic aorta 4. Multiple stents in the abdominal aorta with moderate in-stent restenosis in the middle of the infrarenal aorta, there are multiple coils noted around that area, multiple coils around the iliac artery with patent stent in the iliac artery. Renal arteries are normal DISCUSSION AND RECOMMENDATION: Medical therapy is recommended no intervention is warranted Anesthesia Type: Conscious Sedation Estimated blood loss (mL): 25 ml Contrast Amount: 70 ml Total Radiation Dose: 420 mGy Post-Procedure Diagnosis Post-operative diagnosis: Coronary artery disease Peripheral arterial disease Abdominal aortic aneurysm Hypertension Hyperlipidemia ENOC CRAWFORD MD May 08, 2020 11:55 am
--- NOTE | 2020-05-08 14:35 | NUR ---
PT VOIDS 250CC CLEAR LIGHT YELLOW URINE PER URINAL. UA COLLECTED ET TO LAB.
[2020-05-08 14:41] LABS: BILIRUBIN,URINE NEGATIVE (NEGATIVE); CLARITY,URINE CLEAR; COLOR,URINE YELLOW; GLUCOSE, URINE (UA) NEGATIVE (NEGATIVE); KETONES,URINE NEGATIVE (NEGATIVE); LEUKOCYTE ESTERASE ,URINE NEGATIVE (NEGATIVE); NITRITE,URINE NEGATIVE (NEGATIVE); PROTEIN,URINE NEGATIVE (NEGATIVE)
[2020-05-08 14:48] LABS: BACTERIA,URINE NEGATIVE /HPF; WBC,URINE RARE /HPF
--- NOTE | 2020-05-08 15:00 | NUR ---
DISCHARGE INSTRUCTIONS GIVEN, TO PT ET DAUGHTER, BOTH VERBALIZE UNDERSTANDING. WRITTEN INSTRUCTIONS GIVEN TO PT. HIS [employer] CARD IS PLACED IN HIS WALLET, BY HIS DAUGHTER. PT RESTIGN QUIETLY IN CART, SITE CLEAN ET DRY, SOFT FLAT, DRESSING INTACT, NO ECCHYMOSIS OR INDURATION OR DRAINAGE
--- NOTE | 2020-05-08 15:29 | NUR ---
CALLED [facility] IN ICU TO PRINT A HEART MONITOR STRIP AND SEND IT TO US IN MOC, PT WILL BE DISCHARGED SOON.
== END ==
LOC: CATH 10:00
PROVIDERS: ATTEND Internal Medicine Cardiovascular Disease
DX: I25.10 Atherosclerotic heart disease of native coronary artery without angina pectoris (principal); I10 Essential (primary) hypertension; I71.4 Abdominal aortic aneurysm, without rupture; R94.39 Abnormal result of other cardiovascular function study; I73.9 Peripheral vascular disease, unspecified; E78.5 Hyperlipidemia, unspecified; D64.9 Anemia, unspecified; I44.7 Left bundle-branch block, unspecified; Z79.899 Other long term (current) drug therapy; Z85.46 Personal history of malignant neoplasm of prostate; Z95.828 Presence of other vascular implants and grafts
CPT/HCPCS: 36221; 71045; 75625; 80053; 80061; 81000; 85027; 85610; 85730; 87081; 93458; C1760; C1894; 36415

== ENCOUNTER → 2020-08-19 | Outpatient (CLI) | payer MEDICARE ==
[~2020-08-19] MED LIST changes: -HEParin (CATH LAB) 2,000 ML IV ONE; -HEParin 1000 UNIT/ML (10ML VIAL) FOR BOLUS ONE; -LIDOCAINE 1% INJ 20 ML 20 ML VIAL ONE; -MIDAZOLAM 5 MG/5 ML (VERSED) VIAL ONE; -NS IV 1000 ML 1,000 ML IV SCH; -NS IV 1000 ML 1,000 ML ONE; -PATIENT MAY USE OWN MEDS, ALL PO SCH; -fentaNYL INJECTION 100 MCG/2 ML AMP ONE; -morphine INJ 10 MG/ML 1ML (SYR OR VIAL) IVP STA; -morphine INJ 10 MG/ML 1ML (SYR OR VIAL) ONE
--- NOTE | 2020-08-19 10:58 | Diagnostic Imaging Report ---
INDICATION: Right hip pain. COMPARISON: 04/15/2016 FINDINGS: 2 radiographic views of the right hip were obtained and show advanced osteoarthritic changes. This consists of severe joint space narrowing with sclerotic remodeling and subchondral cystic change to the articular surfaces of the acetabulum and femoral head. Osteophyte formations are also noted. There is no acute fracture or dislocation. Indwelling vascular stent and metallic coils are noted and are new. IMPRESSION: 1. 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 2. No acute fracture or dislocation of the right hip. Dictated by: Dictated on workstation # [id number]
--- NOTE | 2020-08-19 10:59 | Diagnostic Imaging Report ---
INDICATION: Knee pain. COMPARISON: None. FINDINGS: Three views of the right knee joint demonstrate no acute fracture or dislocation. No focal osseous lesions are seen. No significant joint effusion is seen. The surrounding soft tissue structures are unremarkable. There are no radiopaque foreign bodies. IMPRESSION: 1. No acute fractures or dislocations of the right knee joint. Dictated by: Dictated on workstation # [id number]
--- NOTE | 2020-08-19 11:09 | Diagnostic Imaging Report ---
INDICATION: Pelvic pain. COMPARISON: None. FINDINGS: Multiple radiographic views of the sacrum were obtained and show no fractures, dislocations, or other acute bony abnormalities. SI joint spaces are symmetric and appropriate. The soft tissues appear unremarkable. No radiopaque foreign bodies are identified. IMPRESSION: Unremarkable radiographic exam of the sacrum. Dictated by: Dictated on workstation # [id number]
== END ==
LOC: RAD 09:11
PROVIDERS: ATTEND Family Medicine
DX: M16.11 Unilateral primary osteoarthritis, right hip (principal)
CPT/HCPCS: 72202; 73502; 73562

== ENCOUNTER → 2020-12-23 | Outpatient (CLI) | payer MEDICARE ==
--- NOTE | 2020-12-23 12:26 | Diagnostic Imaging Report ---
PROCEDURE: US right lower extremity venous. TECHNIQUE: Multiple Real-time grayscale images were obtained over the right lower extremity in various projections. Additional spectral analysis and color Doppler duplex images were also obtained. INDICATION: Right hip replacement one week ago. Now complaining of right calf pain and swelling. FINDINGS: There is no evidence of right lower extremity DVT. The right lower extremity deep venous system shows normal compressibility with normal response to augmentation and Valsalva. No fluid collection or mass is detected. IMPRESSION: No evidence of right lower extremity DVT. Dictated by: Dictated on workstation # [id number]
== END ==
LOC: RAD 11:00
PROVIDERS: ATTEND Nurse Practitioner Family
DX: M79.661 Pain in right lower leg (principal); R22.41 Localized swelling, mass and lump, right lower limb

== ENCOUNTER 2021-07-17 09:45 | Outpatient (CLI) | payer MEDICARE ==
[~2021-07-17] VITALS: Ht 182.9 cm; Wt 90.7 kg
[2021-07-17 09:51] VITALS: BP 186/96
[2021-07-17] MEDS ORDERED: CASIRIVIMAB/IMDEVIMAB 1,200 MG in NS (IVPB) 50 ML IV ONE (10:00)
[2021-07-17] MEDS ORDERED: ACETAMINOPHEN 500 MG TAB (TYLENOL) PO PRN (10:00)
[2021-07-17] MEDS ORDERED: ONDANSETRON 4 MG/2 ML (SDV) Z0FRAN IV PRN (10:00)
[2021-07-17] MEDS ORDERED: EPINEPHrine INJECTION 1 MG/ML AMP IM PRN (10:00)
[2021-07-17] MEDS ORDERED: diphenhydrAMINE 50 MG/ML INJ (BENADRYL) IV PRN (10:00)
[2021-07-17 10:20] VITALS: BP 138/78
== END 2021-07-17 10:51 | disposition home or self-care (01) ==
LOC: INFUSION 09:45
PROVIDERS: ATTEND Nurse Practitioner Family
DX: U07.1 COVID-19 (principal)

== ENCOUNTER → 2021-08-27 | Outpatient (CLI) | payer MEDICARE ==
--- NOTE | 2021-08-27 11:08 | Diagnostic Imaging Report ---
INDICATION: Left hip pain. TIME OF EXAM: 10:43 AM 2 views of the left hip show normal femoral acetabular alignment. Joint spaces are fairly well maintained. The femoral head and neck are intact. There are no fractures identified. Left-sided rami are intact. Benign soft tissue calcifications adjacent to the greater trochanter noted. IMPRESSION: No acute bony abnormalities detected. Dictated by: Dictated on workstation # [id number]
== END ==
LOC: RAD 10:23
PROVIDERS: ATTEND Nurse Practitioner Family
DX: M25.552 Pain in left hip (principal)
CPT/HCPCS: 73502

== ENCOUNTER 2022-04-24 07:24 | Outpatient (RCR) | payer MEDICARE | END 2022-04-26 | disposition home or self-care (01) | LOC: CR3 07:24 | PROVIDERS: ATTEND Internal Medicine Cardiovascular Disease | DX: Z29.8 Encounter for other specified prophylactic measures (principal) ==

== ENCOUNTER → 2022-05-27 | Outpatient (RCR) | payer MEDICARE | END | disposition home or self-care (01) | LOC: CR3 04-27 08:29 | PROVIDERS: ATTEND Internal Medicine Cardiovascular Disease | DX: Z01.818 Encounter for other preprocedural examination (principal) ==

== ENCOUNTER → 2022-06-01 | Outpatient (CLI) | payer MEDICARE | LOC: CARD 09:30 | PROVIDERS: ATTEND Internal Medicine Cardiovascular Disease | DX: I11.9 Hypertensive heart disease without heart failure (principal); I35.1 Nonrheumatic aortic (valve) insufficiency | CPT/HCPCS: 93306 ==

== ENCOUNTER 2022-07-20 10:32 | Outpatient (RCR) | payer MEDICARE | END 2022-07-27 | disposition home or self-care (01) | LOC: CR3 10:32 | PROVIDERS: ATTEND Internal Medicine Cardiovascular Disease | DX: Z29.8 Encounter for other specified prophylactic measures (principal) ==

== ENCOUNTER 2022-09-23 08:05 | Outpatient (RCR) | payer MEDICARE | END 2022-09-24 | disposition home or self-care (01) | LOC: CR3 08:05 | PROVIDERS: ATTEND Internal Medicine Cardiovascular Disease | DX: Z29.8 Encounter for other specified prophylactic measures (principal) ==

== ENCOUNTER 2022-11-11 10:47 | Outpatient (RCR) | payer MEDICARE | END 2022-11-24 | disposition home or self-care (01) | LOC: CR3 10:47 | PROVIDERS: ATTEND Internal Medicine Cardiovascular Disease | DX: Z29.8 Encounter for other specified prophylactic measures (principal) ==

== ENCOUNTER 2022-12-23 11:27 | Outpatient (RCR) | payer MEDICARE ==
[~2022-12-23 11:27] MED LIST changes: -LOSA100T57 PO; +LOSA100T58 PO
== END 2022-12-25 | disposition home or self-care (01) ==
LOC: CR3 11:27
PROVIDERS: ATTEND Internal Medicine Cardiovascular Disease
DX: Z29.8 Encounter for other specified prophylactic measures (principal)